=== PATIENT | female | born 1975 | race Asian ===

== ENCOUNTER 2021-03-07 20:04 | Emergency (ER) | payer MEDICAID ==
[~2021-03-07] VITALS: Ht 157.5 cm; Wt 70.0 kg
[~2021-03-07 20:04] MED LIST: ACET-2247 PO; ASPI-1450 PO; B CO1CAP6 PO; BISA-151 PO; CARV25 PO; CEFU250T87 PO; CLON-820 PO; ENAL20 PO; EPOE20002 SQ; ESCI-8 PO; FAMO20 PO; FERR-89 PO; FURO40 PO; HYDR-4723 PO; INSLAN SQ; INSU100V SQ; LORA-999 PO; PHOSLOC PO; SENN8.6T20 PO
[2021-03-07 20:48] LABS: BASOPHILS % (AUTO) 0.6 % (0.0-2.0); EOSINOPHILS % (AUTO) 0.9 % (1.0-6.0); HEMATOCRIT 37.5 % (36-46); HEMOGLOBIN 12.6 g/dL (12.0-16.0); LYMPHOCYTES # (AUTO) 2.3 K/uL (1.0-4.8); LYMPHOCYTES % (AUTO) 19.2 % (22.0-44.0); MEAN CORPUSCULAR HEMOGLOBIN 31.8 pg (26.0-34.0); MEAN CORPUSCULAR HGB CONC 33.7 G/dL (31.0-37.0); MEAN CORPUSCULAR VOLUME 95 fL (80-100); MONOCYTES # (AUTO) 1.1 K/uL (0.1-1.0); MONOCYTES % (AUTO) 9.3 % (2.0-9.0); NEUTROPHILS # (AUTO) 8.4 K/uL (1.8-7.7); PLATELET COUNT (AUTO) 338 K/uL (150-450); RED BLOOD CELL COUNT(AUTO) 3.97 MIL/uL (4.00-5.20); RED CELL DISTRIBUTION WIDTH 14.4 % (11.5-14.5)
[2021-03-07 20:53] LABS: CALCIUM, TOTAL 8.9 mg/dL (8.8-10.5); CREATININE 4.74 mg/dL (0.60-1.30); POTASSIUM 3.6 mmol/L (3.5-5.1)
[2021-03-07 20:59] LABS: ALBUMIN 3.9 g/dL (3.4-5.0); BILIRUBIN,TOTAL 0.5 mg/dL (0.1-1.0); TOTAL PROTEIN, SERUM 8.2 g/dL (6.4-8.2)
[2021-03-07 22:33] LABS: HCG,QUANTITATIVE < 1 mIU/mL (0-6)
[2021-03-07 22:51] LABS: B-TYPE NATRIURETIC PEPTIDE 297 pg/mL (0-100)
[2021-03-07 23:00] VITALS: BP 139/99
[2021-03-07] MEDS ORDERED: DiphenhydrAMINE HCL 25 MG CAPSULE PO ONE (23:00)
[2021-03-07] MEDS ORDERED: ACETAMINOPHEN 500 MG TABLET PO ONE (23:00)
[2021-03-07] MEDS ORDERED: METOCLOPRAMIDE HCL 10 MG TABLET PO ONE (23:00)
== END 2021-03-07 23:40 | disposition home or self-care (01) ==
LOC: EMS 20:05
DX: R51.9 Headache, unspecified (principal); R07.89 Other chest pain; I10 Essential (primary) hypertension; Z90.89 Acquired absence of other organs; Z79.82 Long term (current) use of aspirin; Z79.4 Long term (current) use of insulin; Z88.6 Allergy status to analgesic agent
CPT/HCPCS: 71045; 80053; 83880; 84484; 84702; 85025; 93005; 99285; 36415-L1; 36415-TC

== ENCOUNTER 2021-03-11 21:48 | Emergency (ER) | payer MEDICAID ==
[~2021-03-11] VITALS: Ht 157.5 cm; Wt 70.0 kg
[2021-03-11] MEDS ORDERED: HydrALAZINE HCL 20 MG/ML VIAL IVP ONE (22:45)
[2021-03-11 23:18] LABS: BASOPHILS % (AUTO) 1.1 % (0.0-2.0); EOSINOPHILS % (AUTO) 2.9 % (1.0-6.0); HEMATOCRIT 38.7 % (36-46); HEMOGLOBIN 13.5 g/dL (12.0-16.0); LYMPHOCYTES # (AUTO) 2.3 K/uL (1.0-4.8); LYMPHOCYTES % (AUTO) 22.2 % (22.0-44.0); MEAN CORPUSCULAR HGB CONC 34.8 G/dL (31.0-37.0); MEAN CORPUSCULAR VOLUME 95 fL (80-100); MONOCYTES # (AUTO) 1.5 K/uL (0.1-1.0); MONOCYTES % (AUTO) 14.9 % (2.0-9.0); NEUTROPHILS # (AUTO) 6.1 K/uL (1.8-7.7); NEUTROPHILS % (AUTO) 58.9 % (40.0-70.0); PLATELET COUNT (AUTO) 396 K/uL (150-450); RED BLOOD CELL COUNT(AUTO) 4.08 MIL/uL (4.00-5.20); RED CELL DISTRIBUTION WIDTH 14.3 % (11.5-14.5)
[2021-03-11 23:31] LABS: ANION GAP 12 mmol/L (8-16); CALCIUM, TOTAL 8.9 mg/dL (8.8-10.5); CARBON DIOXIDE 29 mmol/L (22-29); CHLORIDE 98 mmol/L (98-107); CREATININE 4.53 mg/dL (0.60-1.30); GLOMERULAR FILTR. RATE CALC 11 mL/min (>60); GLUCOSE,RANDOM 129 mg/dL (70-110); POTASSIUM 3.5 mmol/L (3.5-5.1); SODIUM SERUM 139 mmol/L (136-145); UREA NITROGEN, BLOOD 27 mg/dL (7-18)
[2021-03-11 23:44] LABS: ALANINE AMINOTRANSFERASE 23 U/L (12-78); ALBUMIN 3.8 g/dL (3.4-5.0); ALKALINE PHOSPHATASE 87 U/L (46-116); ASPARTATE AMINOTRANSFERASE 19 U/L (15-37); BILIRUBIN,TOTAL 0.4 mg/dL (0.1-1.0); HCG,QUANTITATIVE < 1 mIU/mL (0-6); LIPASE 184 U/L (73-393); TOTAL PROTEIN, SERUM 8.8 g/dL (6.4-8.2)
[2021-03-12] MEDS ORDERED: HydrALAZINE HCL 20 MG/ML VIAL IVP ONE (00:45)
[2021-03-12] MEDS ORDERED: MORPHINE SULFATE 2 MG/ML SYRINGE IVP ONE (01:00)
[2021-03-12] MEDS ORDERED: MORPHINE SULFATE 4 MG/ML SYRINGE IVP ONE (01:00)
[2021-03-12] MEDS ORDERED: CloNIDine HCL 0.1 MG TABLET PO ONE (01:30)
[2021-03-12 02:24] VITALS: BP 179/125
== END 2021-03-12 02:39 | disposition home or self-care (01) ==
LOC: EMS 21:48
DX: I12.0 Hypertensive chronic kidney disease with stage 5 chronic kidney disease or end stage renal disease (principal); N18.6 End stage renal disease; R10.13 Epigastric pain; Z99.2 Dependence on renal dialysis; Z79.82 Long term (current) use of aspirin; Z79.4 Long term (current) use of insulin; Z88.6 Allergy status to analgesic agent
CPT/HCPCS: 36415; 74176; 80053; 83690; 84702; 85025; 96374; 96375; 96376; 99285; J0360 ×2; J2270

== ENCOUNTER 2021-04-08 20:44 | Emergency (ER) | payer MEDICAID ==
[~2021-04-08] VITALS: Ht 165.1 cm; Wt 72.0 kg
[~2021-04-08 20:44] MED LIST changes: -CLON-820 PO; +CLON0.1T2 PO
[2021-04-08 22:39] LABS: BASOPHILS % (AUTO) 0.5 % (0.0-2.0); EOSINOPHILS % (AUTO) 6.1 % (1.0-6.0); HEMOGLOBIN 12.5 g/dL (12.0-16.0); LYMPHOCYTES # (AUTO) 1.3 K/uL (1.0-4.8); LYMPHOCYTES % (AUTO) 14.7 % (22.0-44.0); MEAN CORPUSCULAR HEMOGLOBIN 31.3 pg (26.0-34.0); MEAN CORPUSCULAR VOLUME 95 fL (80-100); NEUTROPHILS # (AUTO) 6.1 K/uL (1.8-7.7); NEUTROPHILS % (AUTO) 67.7 % (40.0-70.0); PLATELET COUNT (AUTO) 370 K/uL (150-450); RED BLOOD CELL COUNT(AUTO) 4.01 MIL/uL (4.00-5.20); RED CELL DISTRIBUTION WIDTH 14.4 % (11.5-14.5)
[2021-04-08 22:47] LABS: CALCIUM, TOTAL 8.5 mg/dL (8.8-10.5); CREATININE 4.74 mg/dL (0.60-1.30); POTASSIUM 3.8 mmol/L (3.5-5.1)
[2021-04-08 22:52] LABS: ALBUMIN 3.2 g/dL (3.4-5.0); BILIRUBIN,TOTAL 0.4 mg/dL (0.1-1.0); TOTAL PROTEIN, SERUM 7.9 g/dL (6.4-8.2)
[2021-04-09 01:15] VITALS: BP 115/70
== END 2021-04-09 01:38 | disposition home or self-care (01) ==
LOC: EMS 20:47
DX: N93.9 Abnormal uterine and vaginal bleeding, unspecified (principal); I12.0 Hypertensive chronic kidney disease with stage 5 chronic kidney disease or end stage renal disease; E11.22 Type 2 diabetes mellitus with diabetic chronic kidney disease; N18.6 End stage renal disease; Z99.2 Dependence on renal dialysis; Z88.6 Allergy status to analgesic agent; Z79.4 Long term (current) use of insulin; Z79.899 Other long term (current) drug therapy
CPT/HCPCS: 80053; 84702; 84703; 85025; 99283; 99284

== ENCOUNTER 2021-04-11 23:46 | Emergency (ER) | payer MEDICAID ==
[~2021-04-11] VITALS: Ht 160 cm; Wt 70.0 kg
[2021-04-12 00:30] LABS: BASOPHILS % (AUTO) 0.7 % (0.0-2.0); EOSINOPHILS % (AUTO) 7.7 % (1.0-6.0); HEMATOCRIT 37.1 % (36-46); HEMOGLOBIN 12.5 g/dL (12.0-16.0); LYMPHOCYTES # (AUTO) 1.7 K/uL (1.0-4.8); LYMPHOCYTES % (AUTO) 16.6 % (22.0-44.0); MEAN CORPUSCULAR HEMOGLOBIN 31.6 pg (26.0-34.0); MEAN CORPUSCULAR HGB CONC 33.5 G/dL (31.0-37.0); MEAN CORPUSCULAR VOLUME 94 fL (80-100); MONOCYTES # (AUTO) 1.2 K/uL (0.1-1.0); MONOCYTES % (AUTO) 11.5 % (2.0-9.0); NEUTROPHILS # (AUTO) 6.7 K/uL (1.8-7.7); NEUTROPHILS % (AUTO) 63.5 % (40.0-70.0); PLATELET COUNT (AUTO) 346 K/uL (150-450); RED BLOOD CELL COUNT(AUTO) 3.94 MIL/uL (4.00-5.20); RED CELL DISTRIBUTION WIDTH 13.7 % (11.5-14.5)
[2021-04-12 00:45] LABS: CALCIUM, TOTAL 8.2 mg/dL (8.8-10.5); CREATININE 4.4 mg/dL (0.60-1.30); POTASSIUM 3.6 mmol/L (3.5-5.1)
[2021-04-12 00:50] LABS: ALBUMIN 3.5 g/dL (3.4-5.0); BILIRUBIN,TOTAL 0.3 mg/dL (0.1-1.0); TOTAL PROTEIN, SERUM 7.7 g/dL (6.4-8.2)
[2021-04-12 00:54] LABS: INR 0.9 (0.9-1.1)
[2021-04-12 01:20] VITALS: BP 107/56
== END 2021-04-12 02:15 | disposition home or self-care (01) ==
LOC: EMS 23:47
DX: R07.9 Chest pain, unspecified (principal); E11.9 Type 2 diabetes mellitus without complications; I10 Essential (primary) hypertension; Z88.6 Allergy status to analgesic agent; Z79.899 Other long term (current) drug therapy; Z90.49 Acquired absence of other specified parts of digestive tract
CPT/HCPCS: 71045; 80053; 82550; 83880; 84484; 85025; 85610; 85730; 93005; 99284; 99285

== ENCOUNTER 2021-05-07 21:35 | Emergency (ER) | payer MEDICAID ==
[~2021-05-07] VITALS: Ht 157.5 cm; Wt 70.0 kg
[2021-05-07] MEDS ORDERED: ACETAMINOPHEN 500 MG TABLET PO ONE (22:30)
[2021-05-07 22:55] VITALS: BP 153/90
== END 2021-05-07 23:04 | disposition home or self-care (01) ==
LOC: EMS 21:37
DX: N64.4 Mastodynia (principal); E11.9 Type 2 diabetes mellitus without complications; I10 Essential (primary) hypertension; Z90.89 Acquired absence of other organs; Z79.82 Long term (current) use of aspirin; Z88.6 Allergy status to analgesic agent; Z79.4 Long term (current) use of insulin
CPT/HCPCS: 99282; Z7502; Z7610

== ENCOUNTER 2021-05-11 16:23 | Emergency (ER) | payer MEDICAID ==
[~2021-05-11] VITALS: Ht 157.5 cm; Wt 70.0 kg
[2021-05-11 17:12] LABS: GLUCOMETER DEV NAME(LOC) ERT.5; GLUCOSE,POINT OF CARE 122 MG/DL (70-110)
[2021-05-11 19:13] LABS: CALCIUM, TOTAL 8.1 mg/dL (8.8-10.5); CREATININE 6.24 mg/dL (0.60-1.30)
[2021-05-11 19:19] LABS: ALBUMIN 3.7 g/dL (3.4-5.0); BILIRUBIN,TOTAL 0.5 mg/dL (0.1-1.0); TOTAL PROTEIN, SERUM 8.5 g/dL (6.4-8.2)
[2021-05-11 20:27] LABS: BASOPHILS % (AUTO) 0.7 % (0.0-2.0); EOSINOPHILS % (AUTO) 3.3 % (1.0-6.0); HEMATOCRIT 37.6 % (36-46); HEMOGLOBIN 12.5 g/dL (12.0-16.0); LYMPHOCYTES # (AUTO) 3.1 K/uL (1.0-4.8); LYMPHOCYTES % (AUTO) 21.5 % (22.0-44.0); MEAN CORPUSCULAR HEMOGLOBIN 31.7 pg (26.0-34.0); MEAN CORPUSCULAR HGB CONC 33.2 G/dL (31.0-37.0); MEAN CORPUSCULAR VOLUME 96 fL (80-100); MONOCYTES # (AUTO) 1.3 K/uL (0.1-1.0); NEUTROPHILS # (AUTO) 9.3 K/uL (1.8-7.7); NEUTROPHILS % (AUTO) 65.5 % (40.0-70.0); PLATELET COUNT (AUTO) 348 K/uL (150-450); RED BLOOD CELL COUNT(AUTO) 3.94 MIL/uL (4.00-5.20); RED CELL DISTRIBUTION WIDTH 13.6 % (11.5-14.5)
[2021-05-11 20:30] VITALS: BP 165/102
[2021-05-11] MEDS ORDERED: AMOX TR/POT CLAV 875 MG/125 MG TABLET PO ONE (20:30)
[2021-05-11] MEDS ORDERED: HYDROCODONE/ACETAMINOPHEN 5-325 MG TABLET PO ONE (20:30)
== END 2021-05-11 21:11 | disposition home or self-care (01) ==
LOC: EMS 16:23
DX: N64.4 Mastodynia (principal); E11.9 Type 2 diabetes mellitus without complications; I10 Essential (primary) hypertension; Z88.6 Allergy status to analgesic agent; Z79.84 Long term (current) use of oral hypoglycemic drugs; Z79.82 Long term (current) use of aspirin; Z79.899 Other long term (current) drug therapy
CPT/HCPCS: 80053; 82948; 82962; 85025; 99283

== ENCOUNTER 2021-06-14 13:18 | Emergency (ER) | payer MEDICAID ==
[~2021-06-14] VITALS: Ht 157.5 cm; Wt 72.7 kg
[2021-06-14] MEDS ORDERED: ONDANSETRON HCL 4 MG/2 ML VIAL IVP ONE (14:15)
[2021-06-14] MEDS ORDERED: ACETAMINOPHEN 1000 MG/ISO-OSM 100 ML IV ONE (14:15)
[2021-06-14 14:31] LABS: BASOPHILS % (AUTO) 0.2 % (0.0-2.0); EOSINOPHILS % (AUTO) 0 % (1.0-6.0); HEMATOCRIT 39.2 % (36-46); HEMOGLOBIN 13.1 g/dL (12.0-16.0); LYMPHOCYTES # (AUTO) 1.8 K/uL (1.0-4.8); LYMPHOCYTES % (AUTO) 9.2 % (22.0-44.0); MEAN CORPUSCULAR HEMOGLOBIN 31.6 pg (26.0-34.0); MEAN CORPUSCULAR HGB CONC 33.4 G/dL (31.0-37.0); MEAN CORPUSCULAR VOLUME 95 fL (80-100); MONOCYTES # (AUTO) 0.4 K/uL (0.1-1.0); NEUTROPHILS # (AUTO) 17.3 K/uL (1.8-7.7); NEUTROPHILS % (AUTO) 88.6 % (40.0-70.0); PLATELET COUNT (AUTO) 521 K/uL (150-450); RED BLOOD CELL COUNT(AUTO) 4.14 MIL/uL (4.00-5.20); RED CELL DISTRIBUTION WIDTH 14.5 % (11.5-14.5)
[2021-06-14 14:41] LABS: CALCIUM, TOTAL 8.2 mg/dL (8.8-10.5); CREATININE 7.31 mg/dL (0.60-1.30)
[2021-06-14 14:49] VITALS: BP 162/99
[2021-06-14] MEDS ORDERED: LORazepam 2 MG/ML VIAL IVP ONE (15:00)
[2021-06-14] MEDS ORDERED: METOCLOPRAMIDE HCL 5 MG/ML 2 ML VIAL IVP ONE (15:00)
[2021-06-14] MEDS ORDERED: BUPIVACAINE HCL/PF 0.25% 10 ML VIAL SQ ONE (15:00)
== END 2021-06-14 16:15 | disposition home or self-care (01) ==
LOC: EMS 13:22
DX: D72.829 Elevated white blood cell count, unspecified (principal); R11.2 Nausea with vomiting, unspecified; K08.89 Other specified disorders of teeth and supporting structures; F41.9 Anxiety disorder, unspecified; E11.9 Type 2 diabetes mellitus without complications; I10 Essential (primary) hypertension; Z90.49 Acquired absence of other specified parts of digestive tract; Z88.6 Allergy status to analgesic agent; Z79.899 Other long term (current) drug therapy
CPT/HCPCS: 36415; 64400; 80048; 85025; 96365; 96366; 96375; 99284; J0131; J2060; J2405; J2765; J3490

== ENCOUNTER 2021-06-14 17:21 | Emergency (ER) | payer MEDICAID ==
[~2021-06-14] VITALS: Ht 165.1 cm; Wt 77.3 kg
[2021-06-14 17:37] VITALS: BP 127/79
== END 2021-06-14 17:48 | disposition home or self-care (01) ==
LOC: EMS 17:25
DX: R11.2 Nausea with vomiting, unspecified (principal); K08.89 Other specified disorders of teeth and supporting structures; E11.9 Type 2 diabetes mellitus without complications; I10 Essential (primary) hypertension; Z88.6 Allergy status to analgesic agent; Z79.82 Long term (current) use of aspirin; Z79.899 Other long term (current) drug therapy
CPT/HCPCS: 99283; Z7502

== ENCOUNTER 2021-06-14 21:44 | Inpatient (IN) | payer MEDICAID ==
[~2021-06-14] VITALS: Ht 157.5 cm; Wt 77.1 kg
[2021-06-14] MEDS ORDERED: ONDANSETRON HCL 4 MG/2 ML VIAL IVP ONE (22:15)
[2021-06-14] MEDS ORDERED: ACETAMINOPHEN 500 MG TABLET PO ONE (22:15)
[2021-06-14 23:01] LABS: BASOPHILS % (AUTO) 0.5 % (0.0-2.0); EOSINOPHILS % (AUTO) 0.2 % (1.0-6.0); HEMATOCRIT 37.4 % (36-46); HEMOGLOBIN 12.7 g/dL (12.0-16.0); LYMPHOCYTES # (AUTO) 2.7 K/uL (1.0-4.8); LYMPHOCYTES % (AUTO) 13.4 % (22.0-44.0); MEAN CORPUSCULAR HEMOGLOBIN 31.9 pg (26.0-34.0); MEAN CORPUSCULAR HGB CONC 33.8 G/dL (31.0-37.0); MEAN CORPUSCULAR VOLUME 94 fL (80-100); MONOCYTES % (AUTO) 4.8 % (2.0-9.0); NEUTROPHILS # (AUTO) 16.4 K/uL (1.8-7.7); NEUTROPHILS % (AUTO) 81.1 % (40.0-70.0); PLATELET COUNT (AUTO) 538 K/uL (150-450); RED BLOOD CELL COUNT(AUTO) 3.96 MIL/uL (4.00-5.20); RED CELL DISTRIBUTION WIDTH 14.7 % (11.5-14.5)
[2021-06-14 23:54] LABS: BILIRUBIN,TOTAL 0.5 mg/dL (0.1-1.0); CALCIUM, TOTAL 7.9 mg/dL (8.8-10.5); CREATININE 7.24 mg/dL (0.60-1.30); MAGNESIUM 1.9 mg/dL (1.80-2.40); PHOSPHORUS 6.2 mg/dL (2.5-4.9); TOTAL PROTEIN, SERUM 8.8 g/dL (6.4-8.2)
[2021-06-15 00:06] LABS: POTASSIUM 2.9 mmol/L (3.5-5.1)
[2021-06-15] MEDS ORDERED: POTASSIUM CHL 10 MEQ/WATER 50 ML IV ONE (00:30)
[2021-06-15] MEDS ORDERED: AMOX TR/POT CLAV 875 MG/125 MG TABLET PO ONE (00:30)
[2021-06-15] MEDS ORDERED: 0.9% SODIUM CHLORIDE 10 ML SYRINGE IVP PRN (00:45)
[2021-06-15] MEDS ORDERED: ONDANSETRON HCL 4 MG/2 ML VIAL IVP PRN (00:45)
[2021-06-15] MEDS ORDERED: ACETAMINOPHEN 325 MG TABLET PO PRN (00:45)
[2021-06-15 00:54] LABS: COVID AG,FIA SOURCE NASOPHARYNGEAL
[2021-06-15 03:35] VITALS: BP 185/106
[2021-06-15 05:42] VITALS: BP 177/99
[2021-06-15 07:35] VITALS: BP 184/113
[2021-06-15] MEDS ORDERED: DEXTROSE 50%-WATER 25 GM/50 ML SYRINGE IVP PRN (08:00)
[2021-06-15] MEDS ORDERED: HYDROCODONE/ACETAMINOPHEN 5-325 MG TABLET PO PRN (08:30)
[2021-06-15] MEDS: DOCUSATE SODIUM 100 MG CAPSULE PO SCH ×2 (09:00→21:49)
[2021-06-15] MEDS: ASPIRIN 81 MG CHEWABLE TABLET PO SCH (09:24)
[2021-06-15] MEDS: AmLODIPine BESYLATE 10 MG TABLET PO SCH (09:24)
[2021-06-15] MEDS: HYDROCODONE/ACETAMINOPHEN 5-325 MG TABLET PO PRN (09:25)
[2021-06-15] MEDS: HEPARIN SODIUM,PORCINE 5,000 UNITS/ML VIAL SQ SCH ×2 (09:29→21:49)
[2021-06-15] MEDS: FAMOTIDINE 20 MG TABLET PO SCH (09:30)
[2021-06-15 11:10] VITALS: BP 166/101
[2021-06-15] MEDS: CARVEDILOL 12.5 MG TABLET PO SCH ×2 (11:18→21:49)
[2021-06-15] MEDS: VITAMIN B COMP/VIT C/FOLIC ACID CAPSULE PO SCH (14:25)
[2021-06-15 15:08] VITALS: BP 154/83
[2021-06-15] MEDS ORDERED: SODIUM CHLORIDE 0.9% 2,000 ML ONE (15:16)
[2021-06-15 18:20] LABS: GLUCOMETER DEV NAME(LOC) 5S.1; GLUCOSE,POINT OF CARE 134 MG/DL (70-110)
[2021-06-15 20:44] VITALS: BP 189/111
[2021-06-15] MEDS ORDERED: LABETALOL HCL 5 MG/ML 20 ML VIAL IVP ONE (21:30)
[2021-06-15] MEDS: DiphenhydrAMINE/ZINC ACET 30 GM CREAM TP PRN (21:48)
[2021-06-16] VITALS (9 sets, daily range): BP systolic 104–196; BP diastolic 63–114
[2021-06-16] MEDS ORDERED: AmLODIPine BESYLATE 10 MG TABLET PO ONE (00:30)
[2021-06-16] MEDS ORDERED: HydrALAZINE HCL 20 MG/ML VIAL IVP ONE (00:30)
[2021-06-16 02:39] LABS: GLUCOMETER DEV NAME(LOC) 5S.2B; GLUCOSE,POINT OF CARE 116 MG/DL (70-110)
[2021-06-16 02:39] LABS: GLUCOMETER DEV NAME(LOC) 5S.2B; GLUCOSE,POINT OF CARE 120 MG/DL (70-110)
[2021-06-16] MEDS: DiphenhydrAMINE/ZINC ACET 30 GM CREAM TP PRN (03:20)
[2021-06-16 07:10] LABS: BASOPHILS % (AUTO) 0.9 % (0.0-2.0); EOSINOPHILS % (AUTO) 2.2 % (1.0-6.0); HEMATOCRIT 39.2 % (36-46); HEMOGLOBIN 13.3 g/dL (12.0-16.0); LYMPHOCYTES # (AUTO) 3.1 K/uL (1.0-4.8); LYMPHOCYTES % (AUTO) 23.3 % (22.0-44.0); MEAN CORPUSCULAR HEMOGLOBIN 32.4 pg (26.0-34.0); MEAN CORPUSCULAR HGB CONC 33.9 G/dL (31.0-37.0); MEAN CORPUSCULAR VOLUME 96 fL (80-100); MONOCYTES # (AUTO) 1.1 K/uL (0.1-1.0); MONOCYTES % (AUTO) 8.2 % (2.0-9.0); NEUTROPHILS # (AUTO) 8.8 K/uL (1.8-7.7); NEUTROPHILS % (AUTO) 65.4 % (40.0-70.0); PLATELET COUNT (AUTO) 484 K/uL (150-450); RED CELL DISTRIBUTION WIDTH 14.7 % (11.5-14.5)
[2021-06-16 07:56] LABS: ALBUMIN 3.8 g/dL (3.4-5.0); BILIRUBIN,TOTAL 0.5 mg/dL (0.1-1.0); CALCIUM, TOTAL 8.8 mg/dL (8.8-10.5); CREATININE 4.65 mg/dL (0.60-1.30); POTASSIUM 3.2 mmol/L (3.5-5.1); TOTAL PROTEIN, SERUM 8.3 g/dL (6.4-8.2)
[2021-06-16 07:58] LABS: MAGNESIUM 2.1 mg/dL (1.80-2.40); PHOSPHORUS 3.5 mg/dL (2.5-4.9)
[2021-06-16] MEDS: FAMOTIDINE 20 MG TABLET PO SCH (08:46)
[2021-06-16] MEDS: VITAMIN B COMP/VIT C/FOLIC ACID CAPSULE PO SCH (08:46)
[2021-06-16] MEDS: AmLODIPine BESYLATE 10 MG TABLET PO SCH (08:47)
[2021-06-16] MEDS: ASPIRIN 81 MG CHEWABLE TABLET PO SCH (08:47)
[2021-06-16] MEDS: DOCUSATE SODIUM 100 MG CAPSULE PO SCH ×2 (08:47→19:47)
[2021-06-16] MEDS: HEPARIN SODIUM,PORCINE 5,000 UNITS/ML VIAL SQ SCH ×2 (08:48→19:50)
[2021-06-16] MEDS: CARVEDILOL 25 MG TABLET PO SCH ×2 (10:37→20:04)
[2021-06-16] MEDS: ENALAPRIL MALEATE 20 MG TABLET PO SCH (10:37)
[2021-06-16] MEDS: ONDANSETRON HCL 4 MG/2 ML VIAL IVP PRN (19:44)
[2021-06-16] MEDS: INSULIN LISPRO 100 UNITS/ML SQ PRN (20:03)
[2021-06-16 20:54] LABS: GLUCOMETER DEV NAME(LOC) 5S.1; GLUCOSE,POINT OF CARE 190 MG/DL (70-110)
[2021-06-17 04:05] VITALS: BP 129/69
[2021-06-17 07:05] LABS: GLUCOMETER DEV NAME(LOC) 5S.2B; GLUCOSE,POINT OF CARE 208 MG/DL (70-110)
[2021-06-17 07:05] LABS: GLUCOMETER DEV NAME(LOC) 5S.2B; GLUCOSE,POINT OF CARE 127 MG/DL (70-110)
[2021-06-17 07:05] LABS: GLUCOMETER DEV NAME(LOC) 5S.2B; GLUCOSE,POINT OF CARE 142 MG/DL (70-110)
[2021-06-17 07:20] LABS: BASOPHILS % (AUTO) 0.4 % (0.0-2.0); EOSINOPHILS % (AUTO) 3.2 % (1.0-6.0); HEMOGLOBIN 11.6 g/dL (12.0-16.0); LYMPHOCYTES % (AUTO) 35.1 % (22.0-44.0); MEAN CORPUSCULAR HEMOGLOBIN 32.2 pg (26.0-34.0); MEAN CORPUSCULAR HGB CONC 33.1 G/dL (31.0-37.0); MEAN CORPUSCULAR VOLUME 97 fL (80-100); MONOCYTES # (AUTO) 1.2 K/uL (0.1-1.0); MONOCYTES % (AUTO) 8.4 % (2.0-9.0); NEUTROPHILS # (AUTO) 7.5 K/uL (1.8-7.7); NEUTROPHILS % (AUTO) 52.9 % (40.0-70.0); PLATELET COUNT (AUTO) 409 K/uL (150-450); RED CELL DISTRIBUTION WIDTH 14.6 % (11.5-14.5)
[2021-06-17 07:29] LABS: CREATININE 5.69 mg/dL (0.60-1.30)
[2021-06-17 08:01] VITALS: BP 151/81
[2021-06-17] MEDS: AmLODIPine BESYLATE 10 MG TABLET PO SCH (09:00)
[2021-06-17] MEDS: ENALAPRIL MALEATE 20 MG TABLET PO SCH (09:00)
[2021-06-17] MEDS: CARVEDILOL 25 MG TABLET PO SCH ×2 (09:00→21:00)
[2021-06-17] MEDS ORDERED: POTASSIUM CHLORIDE 20 MEQ ER TABLET PO ONE (11:15)
[2021-06-17] MEDS: HEPARIN SODIUM,PORCINE 5,000 UNITS/ML VIAL SQ SCH ×2 (11:18→20:35)
[2021-06-17] MEDS: VITAMIN B COMP/VIT C/FOLIC ACID CAPSULE PO SCH (11:18)
[2021-06-17] MEDS: ASPIRIN 81 MG CHEWABLE TABLET PO SCH (11:18)
[2021-06-17] MEDS: DOCUSATE SODIUM 100 MG CAPSULE PO SCH ×2 (11:19→20:35)
[2021-06-17] MEDS: FAMOTIDINE 20 MG TABLET PO SCH (11:19)
[2021-06-17] MEDS: INSULIN LISPRO 100 UNITS/ML SQ PRN (11:23)
[2021-06-17] MEDS: DiphenhydrAMINE/ZINC ACET 30 GM CREAM TP PRN (11:23)
[2021-06-17] MEDS ORDERED: MECLIZINE HCL 25 MG TABLET PO PRN (11:30)
[2021-06-17] MEDS ORDERED: DiphenhydrAMINE HCL 25 MG CAPSULE PO ONE (11:30)
[2021-06-17 11:57] VITALS: BP 132/78
[2021-06-17 13:19] LABS: GLUCOMETER DEV NAME(LOC) 5S.2B; GLUCOSE,POINT OF CARE 161 MG/DL (70-110)
[2021-06-17 13:19] LABS: GLUCOMETER DEV NAME(LOC) 5S.1; GLUCOSE,POINT OF CARE 111 MG/DL (70-110)
[2021-06-17 15:46] VITALS: BP 132/71
[2021-06-17 16:29] LABS: APPEARANCE,URINE CLOUDY (CLEAR); BILIRUBIN,URINE NEGATIVE (NEGATIVE); GLUCOSE, URINE (UA) 100 mg/dL (NEGATIVE); KETONES,URINE TRACE mg/dL (NEGATIVE); LEUKOCYTE ESTERASE ,URINE SMALL (NEGATIVE); NITRATE,URINE NEGATIVE (NEGATIVE); OCCULT BLOOD,URINE LARGE (NEGATIVE); PH,URINE 5.5 (5.0-8.0); PROTEIN,URINE SEE CONFIRM (NEGATIVE); UROBILINOGEN,URINE 0.2 mg/dL (<=1.0)
[2021-06-17] MEDS ORDERED: SODIUM CHLORIDE 0.9% 2,000 ML ONE (16:30)
[2021-06-17 16:38] LABS: AMPHET/METH SCREEN,URINE NEGATIVE (NEGATIVE); BACTERIA,URINE Few /HPF (None Seen); BARBITURATE SCREEN, URINE NEGATIVE (NEGATIVE); BENZODIAZEPINES SCREEN,URINE NEGATIVE (NEGATIVE); CANNABINOID SCREEN,URINE NEGATIVE (NEGATIVE); COCAINE SCREEN,URINE NEGATIVE (NEGATIVE); METHADONE SCREEN, URINE NEGATIVE (NEGATIVE); OPIATE SCREEN,URINE NEGATIVE (NEGATIVE); PHENCYCLIDINE SCREEN,URINE NEGATIVE (NEGATIVE); RBC,URINE 51-100 /HPF (0-2); SQUAMOUS EPITHELIAL CELL,UR Few /LPF (None Seen); SULFOSALICYLIC ACID,URINE 3+ (Negative)
[2021-06-17 20:02] LABS: GLUCOMETER DEV NAME(LOC) 5S.1; GLUCOSE,POINT OF CARE 116 MG/DL (70-110)
[2021-06-17 20:20] VITALS: BP 148/101
[2021-06-17] MEDS: HYDROCODONE/ACETAMINOPHEN 5-325 MG TABLET PO PRN (20:35)
[2021-06-18] MEDS: DiphenhydrAMINE/ZINC ACET 30 GM CREAM TP PRN (01:21)
[2021-06-18 01:33] LABS: GLUCOMETER DEV NAME(LOC) 5N.3; GLUCOSE,POINT OF CARE 136 MG/DL (70-110)
[2021-06-18 04:25] VITALS: BP 127/84
[2021-06-18 07:06] LABS: BASOPHILS % (AUTO) 0.5 % (0.0-2.0); EOSINOPHILS % (AUTO) 4.7 % (1.0-6.0); HEMATOCRIT 36.8 % (36-46); HEMOGLOBIN 12.4 g/dL (12.0-16.0); LYMPHOCYTES # (AUTO) 3.3 K/uL (1.0-4.8); LYMPHOCYTES % (AUTO) 24.5 % (22.0-44.0); MEAN CORPUSCULAR HEMOGLOBIN 32.3 pg (26.0-34.0); MEAN CORPUSCULAR HGB CONC 33.6 G/dL (31.0-37.0); MEAN CORPUSCULAR VOLUME 96 fL (80-100); MONOCYTES % (AUTO) 7.5 % (2.0-9.0); NEUTROPHILS # (AUTO) 8.4 K/uL (1.8-7.7); NEUTROPHILS % (AUTO) 62.8 % (40.0-70.0); PLATELET COUNT (AUTO) 434 K/uL (150-450); RED BLOOD CELL COUNT(AUTO) 3.83 MIL/uL (4.00-5.20); RED CELL DISTRIBUTION WIDTH 14.7 % (11.5-14.5)
[2021-06-18 07:20] LABS: CALCIUM, TOTAL 8.9 mg/dL (8.8-10.5); CREATININE 3.86 mg/dL (0.60-1.30); POTASSIUM 3.1 mmol/L (3.5-5.1)
[2021-06-18] MEDS: VITAMIN B COMP/VIT C/FOLIC ACID CAPSULE PO SCH (07:59)
[2021-06-18] MEDS: CARVEDILOL 25 MG TABLET PO SCH ×2 (07:59→20:38)
[2021-06-18] MEDS: AmLODIPine BESYLATE 10 MG TABLET PO SCH (07:59)
[2021-06-18] MEDS: FAMOTIDINE 20 MG TABLET PO SCH (07:59)
[2021-06-18] MEDS: DOCUSATE SODIUM 100 MG CAPSULE PO SCH ×2 (07:59→20:38)
[2021-06-18] MEDS: ASPIRIN 81 MG CHEWABLE TABLET PO SCH (07:59)
[2021-06-18] MEDS: HEPARIN SODIUM,PORCINE 5,000 UNITS/ML VIAL SQ SCH ×2 (08:00→20:39)
[2021-06-18 08:18] VITALS: BP 129/74
[2021-06-18] MEDS: ACETAMINOPHEN 325 MG TABLET PO PRN ×2 (11:45→20:41)
[2021-06-18] MEDS: ENALAPRIL MALEATE 20 MG TABLET PO SCH (11:46)
[2021-06-18 12:12] LABS: GLUCOMETER DEV NAME(LOC) 5N.3; GLUCOSE,POINT OF CARE 129 MG/DL (70-110)
[2021-06-18 12:12] LABS: GLUCOMETER DEV NAME(LOC) 5N.3; GLUCOSE,POINT OF CARE 100 MG/DL (70-110)
[2021-06-18] MEDS ORDERED: POTASSIUM CHLORIDE 20 MEQ ER TABLET PO ONE (12:30)
[2021-06-18] MEDS ORDERED: MECL-160 PO (12:36)
[2021-06-18] MEDS ORDERED: CEPH500C2 PO (12:36)
[2021-06-18] MEDS ORDERED: AMLO-258 PO (12:36)
[2021-06-18] MEDS ORDERED: ASPI81 PO (12:36)
[2021-06-18 12:48] VITALS: BP 144/89
[2021-06-18] MEDS: CEPHALEXIN MONOHYDRATE 500 MG CAPSULE PO SCH ×2 (15:49→23:18)
[2021-06-18 15:52] VITALS: BP 130/76
[2021-06-18 19:35] VITALS: BP_SYST 160; BP_SYST 95; BP_DIAS 52; BP_DIAS 83
[2021-06-18] MEDS: ONDANSETRON HCL 4 MG/2 ML VIAL IVP PRN (21:36)
[2021-06-19 00:36] VITALS: BP 110/74
[2021-06-19 01:17] LABS: GLUCOMETER DEV NAME(LOC) 5S.2B; GLUCOSE,POINT OF CARE 135 MG/DL (70-110)
[2021-06-19 01:17] LABS: GLUCOMETER DEV NAME(LOC) 5S.2B; GLUCOSE,POINT OF CARE 139 MG/DL (70-110)
[2021-06-19 04:48] VITALS: BP 97/57
[2021-06-19 06:30] LABS: BASOPHILS % (AUTO) 0.4 % (0.0-2.0); EOSINOPHILS % (AUTO) 3.7 % (1.0-6.0); HEMOGLOBIN 11.8 g/dL (12.0-16.0); LYMPHOCYTES # (AUTO) 4.4 K/uL (1.0-4.8); LYMPHOCYTES % (AUTO) 29.3 % (22.0-44.0); MEAN CORPUSCULAR HEMOGLOBIN 32.6 pg (26.0-34.0); MEAN CORPUSCULAR HGB CONC 33.7 G/dL (31.0-37.0); MEAN CORPUSCULAR VOLUME 97 fL (80-100); MONOCYTES # (AUTO) 1.2 K/uL (0.1-1.0); MONOCYTES % (AUTO) 8.3 % (2.0-9.0); NEUTROPHILS # (AUTO) 8.7 K/uL (1.8-7.7); NEUTROPHILS % (AUTO) 58.3 % (40.0-70.0); PLATELET COUNT (AUTO) 443 K/uL (150-450); RED BLOOD CELL COUNT(AUTO) 3.62 MIL/uL (4.00-5.20); RED CELL DISTRIBUTION WIDTH 15.1 % (11.5-14.5)
[2021-06-19 06:34] LABS: CALCIUM, TOTAL 8.1 mg/dL (8.8-10.5); CREATININE 6.63 mg/dL (0.60-1.30); MAGNESIUM 2.5 mg/dL (1.80-2.40); PHOSPHORUS 7.8 mg/dL (2.5-4.9); POTASSIUM 3.8 mmol/L (3.5-5.1)
[2021-06-19 07:08] LABS: GLUCOMETER DEV NAME(LOC) 5S.1; GLUCOSE,POINT OF CARE 108 MG/DL (70-110)
[2021-06-19 08:25] VITALS: BP 110/68
[2021-06-19] MEDS: HEPARIN SODIUM,PORCINE 5,000 UNITS/ML VIAL SQ SCH (09:00)
[2021-06-19] MEDS: CARVEDILOL 25 MG TABLET PO SCH (09:40)
[2021-06-19] MEDS: VITAMIN B COMP/VIT C/FOLIC ACID CAPSULE PO SCH (09:40)
[2021-06-19] MEDS: CEPHALEXIN MONOHYDRATE 500 MG CAPSULE PO SCH (09:40)
[2021-06-19] MEDS: AmLODIPine BESYLATE 10 MG TABLET PO SCH (09:40)
[2021-06-19] MEDS: ASPIRIN 81 MG CHEWABLE TABLET PO SCH (09:40)
[2021-06-19] MEDS: DOCUSATE SODIUM 100 MG CAPSULE PO SCH (09:40)
[2021-06-19] MEDS: ENALAPRIL MALEATE 20 MG TABLET PO SCH (09:41)
[2021-06-19] MEDS: FAMOTIDINE 20 MG TABLET PO SCH (09:41)
[2021-06-19 11:39] VITALS: BP 99/67
[2021-06-19] MEDS ORDERED: CARV12 PO (11:56)
[2021-06-19 23:16] LABS: GLUCOMETER DEV NAME(LOC) 5S.1; GLUCOSE,POINT OF CARE 127 MG/DL (70-110)
[2021-06-20] MEDS ORDERED: ENALAPRIL MALEATE 10 MG TABLET PO SCH (09:00)
== END 2021-06-19 13:29 | disposition home or self-care (01) | DRG 425 ==
LOC: EMS 21:48 → 5S 06-15 02:58
PROVIDERS: ADMIT Internal Medicine; ATTEND Internal Medicine
PROC: 5A1D70Z Performance of Urinary Filtration, Intermittent, Less than 6 Hours Per Day (ICD-10-PCS; principal; 2021-06-15)
PROC: 5A1D70Z Performance of Urinary Filtration, Intermittent, Less than 6 Hours Per Day (ICD-10-PCS; 2021-06-17)
DX: E87.6 Hypokalemia (principal); I12.0 Hypertensive chronic kidney disease with stage 5 chronic kidney disease or end stage renal disease; N18.6 End stage renal disease; I42.9 Cardiomyopathy, unspecified; R65.10 Systemic inflammatory response syndrome (SIRS) of non-infectious origin without acute organ dysfunction; D63.1 Anemia in chronic kidney disease; N39.0 Urinary tract infection, site not specified; E11.22 Type 2 diabetes mellitus with diabetic chronic kidney disease; Z20.822 Contact with and (suspected) exposure to COVID-19; E66.9 Obesity, unspecified; Z68.30 Body mass index [BMI] 30.0-30.9, adult; Z79.4 Long term (current) use of insulin; Z79.899 Other long term (current) drug therapy; Z99.2 Dependence on renal dialysis
CPT/HCPCS: 70450; 71045; 80048; 80053; 80307; 81001; 81002; 82550; 82962; 83690; 83735; 84100; 84132; 84484; 85025; 87040; 87086; 87340; 93005; 97110; 97162; 97530; 99285; J0360; J1644; J2405; J3480; J3490; J7030; 36415-L1; 36415-TC

== ENCOUNTER 2021-06-19 17:38 | Emergency (ER) | payer MEDICAID ==
[~2021-06-19] VITALS: Ht 157.5 cm; Wt 70.0 kg
[~2021-06-19 17:38] MED LIST changes: +AMLO-258 PO; +ASPI81 PO; +CARV12 PO; -CEFU250T87 PO; +CEPH500C2 PO; -CLON0.1T2 PO; +MECL-160 PO
[2021-06-19 20:14] LABS: BASOPHILS % (AUTO) 0.7 % (0.0-2.0); EOSINOPHILS % (AUTO) 2.1 % (1.0-6.0); HEMATOCRIT 38.3 % (36-46); HEMOGLOBIN 12.9 g/dL (12.0-16.0); LYMPHOCYTES # (AUTO) 1.9 K/uL (1.0-4.8); LYMPHOCYTES % (AUTO) 13.9 % (22.0-44.0); MEAN CORPUSCULAR HEMOGLOBIN 32.8 pg (26.0-34.0); MEAN CORPUSCULAR HGB CONC 33.6 G/dL (31.0-37.0); MEAN CORPUSCULAR VOLUME 97 fL (80-100); MONOCYTES # (AUTO) 0.8 K/uL (0.1-1.0); MONOCYTES % (AUTO) 5.4 % (2.0-9.0); NEUTROPHILS # (AUTO) 10.9 K/uL (1.8-7.7); NEUTROPHILS % (AUTO) 77.9 % (40.0-70.0); PLATELET COUNT (AUTO) 566 K/uL (150-450); RED BLOOD CELL COUNT(AUTO) 3.94 MIL/uL (4.00-5.20); RED CELL DISTRIBUTION WIDTH 14.8 % (11.5-14.5)
[2021-06-19 20:27] LABS: CALCIUM, TOTAL 8.7 mg/dL (8.8-10.5); CREATININE 8.05 mg/dL (0.60-1.30)
[2021-06-19 20:33] LABS: ALBUMIN 4.2 g/dL (3.4-5.0); BILIRUBIN,TOTAL 0.3 mg/dL (0.1-1.0)
[2021-06-19] MEDS ORDERED: ACETAMINOPHEN 500 MG TABLET PO ONE (23:30)
[2021-06-19] MEDS ORDERED: ONDANSETRON HCL 4 MG TABLET PO ONE (23:30)
[2021-06-19] MEDS ORDERED: MECLIZINE HCL 25 MG TABLET PO ONE (23:30)
[2021-06-20 00:43] VITALS: BP 112/68
== END 2021-06-20 03:53 | disposition home or self-care (01) ==
LOC: EMS 17:38
DX: I12.0 Hypertensive chronic kidney disease with stage 5 chronic kidney disease or end stage renal disease (principal); E11.22 Type 2 diabetes mellitus with diabetic chronic kidney disease; N18.6 End stage renal disease; E11.65 Type 2 diabetes mellitus with hyperglycemia; Z99.2 Dependence on renal dialysis; Z79.899 Other long term (current) drug therapy; Z79.82 Long term (current) use of aspirin; Z88.6 Allergy status to analgesic agent; Z79.4 Long term (current) use of insulin
CPT/HCPCS: 36415; 80053; 82962; 83690; 84484; 85025; 99283; Q0162

== ENCOUNTER 2021-06-20 16:05 | Inpatient (IN) | payer MEDICAID ==
[~2021-06-20] VITALS: Ht 157.5 cm; Wt 76.0 kg
[~2021-06-20 16:05] MED LIST changes: -CARV25 PO; -ENAL20 PO
[2021-06-20 17:50] LABS: BASOPHILS % (AUTO) 0.6 % (0.0-2.0); EOSINOPHILS % (AUTO) 1.4 % (1.0-6.0); HEMATOCRIT 36.9 % (36-46); HEMOGLOBIN 12.4 g/dL (12.0-16.0); LYMPHOCYTES % (AUTO) 12.8 % (22.0-44.0); MEAN CORPUSCULAR HEMOGLOBIN 32.3 pg (26.0-34.0); MEAN CORPUSCULAR HGB CONC 33.6 G/dL (31.0-37.0); MEAN CORPUSCULAR VOLUME 96 fL (80-100); MONOCYTES # (AUTO) 0.9 K/uL (0.1-1.0); NEUTROPHILS # (AUTO) 12.4 K/uL (1.8-7.7); NEUTROPHILS % (AUTO) 79.2 % (40.0-70.0); PLATELET COUNT (AUTO) 545 K/uL (150-450); RED BLOOD CELL COUNT(AUTO) 3.84 MIL/uL (4.00-5.20); RED CELL DISTRIBUTION WIDTH 14.5 % (11.5-14.5)
[2021-06-20 18:18] LABS: CALCIUM, TOTAL 8.4 mg/dL (8.8-10.5); CREATININE 5.52 mg/dL (0.60-1.30); POTASSIUM 3.5 mmol/L (3.5-5.1)
[2021-06-20 18:23] LABS: ALBUMIN 3.8 g/dL (3.4-5.0); BILIRUBIN,TOTAL 0.5 mg/dL (0.1-1.0); TOTAL PROTEIN, SERUM 8.4 g/dL (6.4-8.2)
[2021-06-20] MEDS ORDERED: ONDANSETRON HCL 4 MG/2 ML VIAL IVP PRN (19:00)
[2021-06-20] MEDS ORDERED: NITROGLYCERIN 2% (1 GM=INCH) PACKET TP ONE (19:00)
[2021-06-20] MEDS ORDERED: ACETAMINOPHEN 325 MG TABLET PO PRN (19:00)
[2021-06-20] MEDS ORDERED: 0.9% SODIUM CHLORIDE 10 ML SYRINGE IVP PRN (19:00)
[2021-06-20] MEDS ORDERED: MORPHINE SULFATE 2 MG/ML SYRINGE IVP ONE (19:00)
[2021-06-20] MEDS ORDERED: ONDANSETRON HCL 4 MG/2 ML VIAL IVP ONE (19:00)
[2021-06-20] MEDS ORDERED: SODIUM CHLORIDE 0.9% 100 ML ONE (20:02)
[2021-06-20] MEDS ORDERED: IOHEXOL 350 MG/ML 100 ML VIAL ONE (20:02)
[2021-06-20 21:28] LABS: COVID AG,FIA SOURCE NASAL SWAB
[2021-06-20] MEDS ORDERED: BISACODYL 5 MG EC TABLET PO PRN (22:45)
[2021-06-20] MEDS ORDERED: DEXTROSE 50%-WATER 25 GM/50 ML SYRINGE IVP PRN (22:45)
[2021-06-21] VITALS (7 sets, daily range): BP systolic 98–160; BP diastolic 57–92
[2021-06-21] MEDS: DiphenhydrAMINE/ZINC ACET 30 GM CREAM TP PRN (00:40)
[2021-06-21] MEDS: CEPHALEXIN MONOHYDRATE 500 MG CAPSULE PO SCH ×4 (00:40→23:29)
[2021-06-21] MEDS ORDERED: PNEUMOCOCCAL VACCINE POLYVALENT 0.5 ML VIAL [PPSV23] IM. ONE (03:15)
[2021-06-21] MEDS: HYDROCODONE/ACETAMINOPHEN 5-325 MG TABLET PO PRN (03:17)
[2021-06-21 06:49] LABS: GLUCOMETER DEV NAME(LOC) 5S.1; GLUCOSE,POINT OF CARE 130 MG/DL (70-110)
[2021-06-21 07:51] LABS: BILIRUBIN,URINE NEGATIVE (NEGATIVE); GLUCOSE, URINE (UA) NEGATIVE (NEGATIVE); KETONES,URINE NEGATIVE (NEGATIVE); LEUKOCYTE ESTERASE ,URINE NEGATIVE (NEGATIVE); NITRATE,URINE NEGATIVE (NEGATIVE); OCCULT BLOOD,URINE MODERATE (NEGATIVE); PH,URINE 5.5 (5.0-8.0); PROTEIN,URINE SEE CONFIRM (NEGATIVE); UROBILINOGEN,URINE 0.2 mg/dL (<=1.0)
[2021-06-21] MEDS: CALCIUM ACETATE 667 MG CAPSULE PO SCH ×3 (07:59→17:27)
[2021-06-21] MEDS: FERROUS SULFATE 325 MG EC TABLET PO SCH ×2 (08:00→17:27)
[2021-06-21] MEDS: FAMOTIDINE 20 MG TABLET PO SCH (08:00)
[2021-06-21] MEDS: CARVEDILOL 12.5 MG TABLET PO SCH ×2 (08:00→20:26)
[2021-06-21] MEDS: FUROSEMIDE 40 MG TABLET PO SCH (08:00)
[2021-06-21] MEDS: VITAMIN B COMP/VIT C/FOLIC ACID CAPSULE PO SCH (08:00)
[2021-06-21] MEDS: ESCITALOPRAM OXALATE 10 MG TABLET PO SCH (08:00)
[2021-06-21 08:17] LABS: APPEARANCE,URINE HAZY (CLEAR)
[2021-06-21 08:20] LABS: BACTERIA,URINE None Seen /HPF (None Seen); SQUAMOUS EPITHELIAL CELL,UR Rare /LPF (None Seen); SULFOSALICYLIC ACID,URINE 3+ (Negative); WBC,URINE 0-2 /HPF (0-5)
[2021-06-21] MEDS ORDERED: AmLODIPine BESYLATE 10 MG TABLET PO SCH (09:00)
[2021-06-21 12:21] LABS: GLUCOMETER DEV NAME(LOC) 5N.3; GLUCOSE,POINT OF CARE 119 MG/DL (70-110)
[2021-06-21] MEDS: ASPIRIN 81 MG CHEWABLE TABLET PO SCH (20:27)
[2021-06-21] MEDS: SENNA 187 MG TABLET PO SCH (20:27)
[2021-06-21] MEDS: INSULIN LISPRO 100 UNITS/ML SQ PRN (20:31)
[2021-06-22 00:55] LABS: GLUCOMETER DEV NAME(LOC) 5S.1; GLUCOSE,POINT OF CARE 124 MG/DL (70-110)
[2021-06-22 00:55] LABS: GLUCOMETER DEV NAME(LOC) 5S.2B; GLUCOSE,POINT OF CARE 194 MG/DL (70-110)
[2021-06-22] MEDS: LORazepam 0.5 MG TABLET PO PRN ×2 (01:41→22:04)
[2021-06-22 04:20] VITALS: BP 123/75
[2021-06-22 07:33] VITALS: BP 134/70
[2021-06-22] MEDS: FUROSEMIDE 40 MG TABLET PO SCH (08:37)
[2021-06-22] MEDS: CEPHALEXIN MONOHYDRATE 500 MG CAPSULE PO SCH ×2 (08:37→17:34)
[2021-06-22] MEDS: FERROUS SULFATE 325 MG EC TABLET PO SCH (08:38)
[2021-06-22] MEDS: FAMOTIDINE 20 MG TABLET PO SCH (08:38)
[2021-06-22] MEDS: VITAMIN B COMP/VIT C/FOLIC ACID CAPSULE PO SCH (08:38)
[2021-06-22] MEDS: ESCITALOPRAM OXALATE 10 MG TABLET PO SCH (08:38)
[2021-06-22] MEDS: CARVEDILOL 12.5 MG TABLET PO SCH ×2 (08:38→21:43)
[2021-06-22] MEDS: CALCIUM ACETATE 667 MG CAPSULE PO SCH ×3 (08:38→17:36)
[2021-06-22] MEDS ORDERED: [UNRECOGNIZED DRUG - OTHER] SQ SCH (09:00)
[2021-06-22] MEDS ORDERED: EPOETIN ALFA 10,000 UNITS/ML 2 ML VIAL SQ SCH (09:00)
[2021-06-22 10:59] VITALS: BP 126/66
[2021-06-22 15:34] VITALS: BP 127/76
[2021-06-22] MEDS ORDERED: SODIUM CHLORIDE 0.9% 1,000 ML ONE (18:00)
[2021-06-22 21:33] VITALS: BP 116/74
[2021-06-22] MEDS: HYDROCODONE/ACETAMINOPHEN 5-325 MG TABLET PO PRN (21:42)
[2021-06-22] MEDS: ASPIRIN 81 MG CHEWABLE TABLET PO SCH (21:43)
[2021-06-22] MEDS: ATORVASTATIN CALCIUM 10 MG TABLET PO SCH (21:44)
[2021-06-22] MEDS: SENNA 187 MG TABLET PO SCH (21:47)
[2021-06-22] MEDS: DiphenhydrAMINE/ZINC ACET 30 GM CREAM TP PRN (21:55)
[2021-06-22 22:28] LABS: GLUCOMETER DEV NAME(LOC) 5S.2B; GLUCOSE,POINT OF CARE 98 MG/DL (70-110)
[2021-06-22 22:28] LABS: GLUCOMETER DEV NAME(LOC) 5S.2B; GLUCOSE,POINT OF CARE 123 MG/DL (70-110)
[2021-06-22 23:37] VITALS: BP 126/70
[2021-06-23] MEDS: CEPHALEXIN MONOHYDRATE 500 MG CAPSULE PO SCH ×3 (00:38→18:11)
[2021-06-23 04:00] VITALS: BP 135/80
[2021-06-23] MEDS: HYDROCODONE/ACETAMINOPHEN 5-325 MG TABLET PO PRN ×2 (04:21→21:19)
[2021-06-23] MEDS: LORazepam 0.5 MG TABLET PO PRN (04:21)
[2021-06-23] MEDS ORDERED: MORPHINE SULFATE 2 MG/ML SYRINGE IM ONE (06:15)
[2021-06-23] MEDS ORDERED: MORPHINE SULFATE 2 MG/ML SYRINGE IVP ONE (06:30)
[2021-06-23 06:36] LABS: BASOPHILS % (AUTO) 0.4 % (0.0-2.0); EOSINOPHILS % (AUTO) 9.5 % (1.0-6.0); HEMATOCRIT 34.3 % (36-46); HEMOGLOBIN 11.7 g/dL (12.0-16.0); LYMPHOCYTES # (AUTO) 1.9 K/uL (1.0-4.8); MEAN CORPUSCULAR HEMOGLOBIN 33.2 pg (26.0-34.0); MEAN CORPUSCULAR HGB CONC 34.1 G/dL (31.0-37.0); MEAN CORPUSCULAR VOLUME 97 fL (80-100); MONOCYTES % (AUTO) 9.1 % (2.0-9.0); NEUTROPHILS # (AUTO) 6.7 K/uL (1.8-7.7); PLATELET COUNT (AUTO) 519 K/uL (150-450); RED BLOOD CELL COUNT(AUTO) 3.53 MIL/uL (4.00-5.20); RED CELL DISTRIBUTION WIDTH 14.6 % (11.5-14.5)
[2021-06-23 06:41] LABS: CALCIUM, TOTAL 8.7 mg/dL (8.8-10.5); CARBON DIOXIDE 26 mmol/L (22-29); CHOL/HDL RATIO 5.3 (3.9-5.7); CHOLESTEROL 217 mg/dL (131-200); CREATININE 5.93 mg/dL (0.60-1.30); GLOMERULAR FILTR. RATE CALC 8 mL/min (>60); GLUCOSE,RANDOM 105 mg/dL (70-110); HDL CHOLESTEROL 41 mg/dL (40-60); TRIGLYCERIDES 492 mg/dL (15-150); UREA NITROGEN, BLOOD 45 mg/dL (7-18)
[2021-06-23 06:45] LABS: GLUCOMETER DEV NAME(LOC) 5S.1; GLUCOSE,POINT OF CARE 103 MG/DL (70-110)
[2021-06-23 06:45] LABS: GLUCOMETER DEV NAME(LOC) 5S.1; GLUCOSE,POINT OF CARE 98 MG/DL (70-110)
[2021-06-23 06:46] LABS: ANION GAP 11 mmol/L (8-16); CHLORIDE 95 mmol/L (98-107); POTASSIUM 3.6 mmol/L (3.5-5.1); SODIUM SERUM 132 mmol/L (136-145)
[2021-06-23 07:25] LABS: GLUCOMETER DEV NAME(LOC) 5S.2B; GLUCOSE,POINT OF CARE 76 MG/DL (70-110)
[2021-06-23 07:37] VITALS: BP 119/73
[2021-06-23] MEDS: VITAMIN B COMP/VIT C/FOLIC ACID CAPSULE PO SCH (08:36)
[2021-06-23] MEDS: FAMOTIDINE 20 MG TABLET PO SCH (08:36)
[2021-06-23] MEDS: CALCIUM ACETATE 667 MG CAPSULE PO SCH ×3 (08:36→18:11)
[2021-06-23] MEDS: FUROSEMIDE 40 MG TABLET PO SCH (08:36)
[2021-06-23] MEDS: ESCITALOPRAM OXALATE 10 MG TABLET PO SCH (08:37)
[2021-06-23] MEDS: CARVEDILOL 12.5 MG TABLET PO SCH ×2 (08:37→21:19)
[2021-06-23] MEDS: LISINOPRIL 5 MG TABLET PO SCH (09:00)
[2021-06-23 11:22] VITALS: BP_SYST 107; BP_SYST 71; BP_DIAS 57
[2021-06-23 15:24] VITALS: BP 118/66
[2021-06-23 19:28] LABS: GLUCOMETER DEV NAME(LOC) 5S.2B; GLUCOSE,POINT OF CARE 103 MG/DL (70-110)
[2021-06-23 19:28] LABS: GLUCOMETER DEV NAME(LOC) 5S.2B; GLUCOSE,POINT OF CARE 106 MG/DL (70-110)
[2021-06-23 19:45] VITALS: BP 120/60
[2021-06-23] MEDS: SENNA 187 MG TABLET PO SCH (21:19)
[2021-06-23] MEDS: ASPIRIN 81 MG CHEWABLE TABLET PO SCH (21:19)
[2021-06-23] MEDS: ATORVASTATIN CALCIUM 10 MG TABLET PO SCH (21:19)
[2021-06-23] MEDS ORDERED: LACTULOSE 20 GM/30 ML SOLUTION UDCUP PO ONE (21:45)
[2021-06-23 23:13] LABS: GLUCOMETER DEV NAME(LOC) 5S.1; GLUCOSE,POINT OF CARE 113 MG/DL (70-110)
[2021-06-24] VITALS (7 sets, daily range): BP systolic 116–139; BP diastolic 64–95
[2021-06-24] MEDS: HYDROCODONE/ACETAMINOPHEN 5-325 MG TABLET PO PRN ×2 (01:44→16:49)
[2021-06-24] MEDS: CEPHALEXIN MONOHYDRATE 500 MG CAPSULE PO SCH ×4 (01:44→23:54)
[2021-06-24] MEDS ORDERED: SODIUM CHLORIDE 0.9% 2,000 ML ONE (08:02)
[2021-06-24] MEDS: CALCIUM ACETATE 667 MG CAPSULE PO SCH ×3 (08:04→17:56)
[2021-06-24] MEDS: FAMOTIDINE 20 MG TABLET PO SCH (08:04)
[2021-06-24] MEDS: VITAMIN B COMP/VIT C/FOLIC ACID CAPSULE PO SCH (08:04)
[2021-06-24] MEDS: FUROSEMIDE 40 MG TABLET PO SCH (08:04)
[2021-06-24] MEDS: LISINOPRIL 5 MG TABLET PO SCH (09:00)
[2021-06-24] MEDS: CARVEDILOL 12.5 MG TABLET PO SCH ×2 (09:00→20:19)
[2021-06-24] MEDS: ESCITALOPRAM OXALATE 10 MG TABLET PO SCH (09:00)
[2021-06-24 10:33] LABS: GLUCOMETER DEV NAME(LOC) 5S.1; GLUCOSE,POINT OF CARE 106 MG/DL (70-110)
[2021-06-24 13:10] LABS: GLUCOMETER DEV NAME(LOC) 5S.1; GLUCOSE,POINT OF CARE 108 MG/DL (70-110)
[2021-06-24] MEDS: MUPIROCIN CALCIUM 2% 22 GM OINTMENT NASAL SCH ×2 (16:49→20:19)
[2021-06-24 18:57] LABS: GLUCOMETER DEV NAME(LOC) 5S.2B; GLUCOSE,POINT OF CARE 106 MG/DL (70-110)
[2021-06-24] MEDS: ATORVASTATIN CALCIUM 10 MG TABLET PO SCH (20:19)
[2021-06-24] MEDS: ASPIRIN 81 MG CHEWABLE TABLET PO SCH (20:19)
[2021-06-24] MEDS: SENNA 187 MG TABLET PO SCH (20:19)
[2021-06-24] MEDS: MECLIZINE HCL 25 MG TABLET PO PRN (20:20)
[2021-06-24] MEDS: INSULIN LISPRO 100 UNITS/ML SQ PRN (20:22)
[2021-06-24 22:28] LABS: GLUCOMETER DEV NAME(LOC) 5S.1; GLUCOSE,POINT OF CARE 171 MG/DL (70-110)
[2021-06-25] MEDS: HYDROCODONE/ACETAMINOPHEN 5-325 MG TABLET PO PRN ×2 (02:40→22:53)
[2021-06-25 04:15] VITALS: BP 113/72
[2021-06-25 08:05] VITALS: BP 124/76
[2021-06-25] MEDS: FUROSEMIDE 40 MG TABLET PO SCH (08:27)
[2021-06-25] MEDS: FAMOTIDINE 20 MG TABLET PO SCH (08:27)
[2021-06-25] MEDS: VITAMIN B COMP/VIT C/FOLIC ACID CAPSULE PO SCH (08:27)
[2021-06-25] MEDS: CALCIUM ACETATE 667 MG CAPSULE PO SCH ×3 (08:27→17:43)
[2021-06-25] MEDS: LISINOPRIL 5 MG TABLET PO SCH (08:27)
[2021-06-25] MEDS: CEPHALEXIN MONOHYDRATE 500 MG CAPSULE PO SCH ×3 (08:28→23:30)
[2021-06-25] MEDS: ESCITALOPRAM OXALATE 10 MG TABLET PO SCH (08:28)
[2021-06-25] MEDS: CARVEDILOL 12.5 MG TABLET PO SCH ×2 (08:28→20:47)
[2021-06-25] MEDS: MUPIROCIN CALCIUM 2% 22 GM OINTMENT NASAL SCH ×2 (08:31→20:47)
[2021-06-25 08:36] LABS: GLUCOMETER DEV NAME(LOC) 5S.2B; GLUCOSE,POINT OF CARE 108 MG/DL (70-110)
[2021-06-25 11:25] VITALS: BP 143/91
[2021-06-25 12:34] LABS: GLUCOMETER DEV NAME(LOC) 5S.2B; GLUCOSE,POINT OF CARE 109 MG/DL (70-110)
[2021-06-25 15:09] VITALS: BP 142/97
[2021-06-25] MEDS ORDERED: LIDOCAINE/PF 1% 2 ML VIAL CAUDAL ONE (15:22)
[2021-06-25 18:53] LABS: GLUCOMETER DEV NAME(LOC) 5S.2B; GLUCOSE,POINT OF CARE 110 MG/DL (70-110)
[2021-06-25 19:46] VITALS: BP 159/99
[2021-06-25] MEDS: ASPIRIN 81 MG CHEWABLE TABLET PO SCH (20:46)
[2021-06-25] MEDS: ATORVASTATIN CALCIUM 10 MG TABLET PO SCH (20:46)
[2021-06-25] MEDS: SENNA 187 MG TABLET PO SCH (20:46)
[2021-06-25] MEDS: MECLIZINE HCL 25 MG TABLET PO PRN (20:46)
[2021-06-25 21:56] LABS: GLUCOMETER DEV NAME(LOC) 5S.1; GLUCOSE,POINT OF CARE 130 MG/DL (70-110)
[2021-06-25] MEDS: LORazepam 0.5 MG TABLET PO PRN (23:30)
[2021-06-26 00:45] VITALS: BP 138/99
[2021-06-26 05:32] VITALS: BP 143/91
[2021-06-26 07:04] LABS: GLUCOMETER DEV NAME(LOC) 5S.2B; GLUCOSE,POINT OF CARE 96 MG/DL (70-110)
[2021-06-26 08:04] VITALS: BP 137/78
[2021-06-26] MEDS: VITAMIN B COMP/VIT C/FOLIC ACID CAPSULE PO SCH (08:07)
[2021-06-26] MEDS: CALCIUM ACETATE 667 MG CAPSULE PO SCH ×2 (08:07→11:48)
[2021-06-26] MEDS: FAMOTIDINE 20 MG TABLET PO SCH (08:07)
[2021-06-26] MEDS: CARVEDILOL 12.5 MG TABLET PO SCH (08:07)
[2021-06-26] MEDS: LISINOPRIL 5 MG TABLET PO SCH (08:07)
[2021-06-26] MEDS: ESCITALOPRAM OXALATE 10 MG TABLET PO SCH (08:07)
[2021-06-26] MEDS: FUROSEMIDE 40 MG TABLET PO SCH (08:07)
[2021-06-26] MEDS: CEPHALEXIN MONOHYDRATE 500 MG CAPSULE PO SCH (08:07)
[2021-06-26] MEDS: MUPIROCIN CALCIUM 2% 22 GM OINTMENT NASAL SCH (08:08)
[2021-06-26 11:10] VITALS: BP 149/96
[2021-06-26] MEDS ORDERED: ATOR10TA84 PO (13:11)
[2021-06-26] MEDS ORDERED: LISI-892 PO (13:16)
[2021-06-26] MEDS ORDERED: MUPI15CR12 NASAL (13:17)
[2021-06-26 20:20] LABS: GLUCOMETER DEV NAME(LOC) 5S.1; GLUCOSE,POINT OF CARE 105 MG/DL (70-110)
[2021-07-10] MEDS ORDERED: CLON0.1T2 PO (19:43)
[2021-07-10] MEDS ORDERED: FERR-72 PO (19:43)
[2021-07-10] MEDS ORDERED: AMLO10TA55 PO (19:43)
== END 2021-06-26 14:08 | DRG 45 ==
LOC: EMS 16:09 → 5S 20:00
PROVIDERS: ADMIT Internal Medicine; ATTEND Internal Medicine
DX: I63.9 Cerebral infarction, unspecified (principal); I13.2 Hypertensive heart and chronic kidney disease with heart failure and with stage 5 chronic kidney disease, or end stage renal disease; I42.9 Cardiomyopathy, unspecified; N18.6 End stage renal disease; R65.10 Systemic inflammatory response syndrome (SIRS) of non-infectious origin without acute organ dysfunction; E11.22 Type 2 diabetes mellitus with diabetic chronic kidney disease; D63.1 Anemia in chronic kidney disease; I50.22 Chronic systolic (congestive) heart failure; I34.0 Nonrheumatic mitral (valve) insufficiency; Z20.822 Contact with and (suspected) exposure to COVID-19; Z79.4 Long term (current) use of insulin; Z79.82 Long term (current) use of aspirin; Z79.899 Other long term (current) drug therapy; Z88.8 Allergy status to other drugs, medicaments and biological substances
CPT/HCPCS: 70450; 70551; 71045; 71275; 80048; 80053; 80061; 81001; 81002; 82962; 83735; 83880; 84100; 84484; 85025; 87040; 87081; 87340; 90935; 93005; 93306; 93880; 97163; 99285; G0378; J0885; J2270; J2405; J3490; J7030; J7050; Q9967; 36415-L1; 36415-TC

== ENCOUNTER 2021-08-16 17:37 | Emergency (ER) | payer MEDICAID ==
[~2021-08-16] VITALS: Ht 157.5 cm; Wt 75.0 kg
[~2021-08-16 17:37] MED LIST changes: -ACET-2247 PO; -AMLO-258 PO; +AMLO10TA55 PO; +ASPI-1444 PO; -ASPI-1450 PO; -ASPI81 PO; +ATOR10TA84 PO; -BISA-151 PO; -CEPH500C2 PO; +CLON0.1T2 PO; -EPOE20002 SQ; -ESCI-8 PO; +ESCI20TA87 PO; -FERR-89 PO; -FURO40 PO; -HYDR-4723 PO; -INSLAN SQ; -LORA-999 PO
[2021-08-16 20:43] LABS: BASOPHILS % (AUTO) 0.6 % (0.0-2.0); EOSINOPHILS % (AUTO) 1.9 % (1.0-6.0); HEMATOCRIT 42.6 % (36-46); HEMOGLOBIN 14.4 g/dL (12.0-16.0); LYMPHOCYTES # (AUTO) 2.7 K/uL (1.0-4.8); LYMPHOCYTES % (AUTO) 17.5 % (22.0-44.0); MEAN CORPUSCULAR HEMOGLOBIN 32.6 pg (26.0-34.0); MEAN CORPUSCULAR HGB CONC 33.7 G/dL (31.0-37.0); MEAN CORPUSCULAR VOLUME 97 fL (80-100); MONOCYTES # (AUTO) 1.3 K/uL (0.1-1.0); MONOCYTES % (AUTO) 8.3 % (2.0-9.0); NEUTROPHILS % (AUTO) 71.7 % (40.0-70.0); PLATELET COUNT (AUTO) 461 K/uL (150-450); RED BLOOD CELL COUNT(AUTO) 4.42 MIL/uL (4.00-5.20); RED CELL DISTRIBUTION WIDTH 13.4 % (11.5-14.5)
[2021-08-16 21:03] LABS: ANION GAP 17 mmol/L (8-16); CALCIUM, TOTAL 9.2 mg/dL (8.8-10.5); CARBON DIOXIDE 27 mmol/L (22-29); CHLORIDE 94 mmol/L (98-107); CREATININE 7.24 mg/dL (0.60-1.30); GLOMERULAR FILTR. RATE CALC 6 mL/min (>60); GLUCOSE,RANDOM 150 mg/dL (70-110); POTASSIUM 4.1 mmol/L (3.5-5.1); SODIUM SERUM 138 mmol/L (136-145); UREA NITROGEN, BLOOD 69 mg/dL (7-18)
[2021-08-16 21:10] LABS: B-TYPE NATRIURETIC PEPTIDE 44 pg/mL (0-100)
[2021-08-16 21:14] LABS: ALANINE AMINOTRANSFERASE 25 U/L (12-78); ALBUMIN 4.8 g/dL (3.4-5.0); ALKALINE PHOSPHATASE 74 U/L (46-116); ASPARTATE AMINOTRANSFERASE 17 U/L (15-37); BILIRUBIN,TOTAL 0.5 mg/dL (0.1-1.0); HCG,QUANTITATIVE < 1 mIU/mL (0-6); LIPASE 209 U/L (73-393); TOTAL PROTEIN, SERUM 9.8 g/dL (6.4-8.2)
[2021-08-16] MEDS ORDERED: ONDANSETRON HCL 4 MG/2 ML VIAL IVP ONE (21:30)
[2021-08-16] MEDS ORDERED: MORPHINE SULFATE 2 MG/ML SYRINGE IVP ONE (21:30)
[2021-08-16] MEDS ORDERED: MORPHINE SULFATE 4 MG/ML SYRINGE IM ONE (21:45)
[2021-08-16] MEDS ORDERED: ONDANSETRON HCL 4 MG TABLET PO ONE (21:45)
[2021-08-16 22:13] VITALS: BP 131/90
== END 2021-08-16 22:50 | disposition home or self-care (01) ==
LOC: EMS 17:39
DX: R07.9 Chest pain, unspecified (principal); E11.22 Type 2 diabetes mellitus with diabetic chronic kidney disease; I12.0 Hypertensive chronic kidney disease with stage 5 chronic kidney disease or end stage renal disease; N18.6 End stage renal disease
CPT/HCPCS: 36415; 71045; 80053; 83690; 83880; 84484; 84702; 85025; 93005; 96372; 99285; J2270; Q0162

== ENCOUNTER 2021-08-18 20:20 | Emergency (ER) | payer MEDICAID ==
[~2021-08-18] VITALS: Ht 160 cm; Wt 75.0 kg
[2021-08-18 20:43] LABS: BASOPHILS % (AUTO) 0.6 % (0.0-2.0); EOSINOPHILS % (AUTO) 2.5 % (1.0-6.0); HEMATOCRIT 38.5 % (36-46); HEMOGLOBIN 12.9 g/dL (12.0-16.0); LYMPHOCYTES % (AUTO) 22.2 % (22.0-44.0); MEAN CORPUSCULAR HEMOGLOBIN 31.8 pg (26.0-34.0); MEAN CORPUSCULAR HGB CONC 33.4 G/dL (31.0-37.0); MEAN CORPUSCULAR VOLUME 95 fL (80-100); MONOCYTES # (AUTO) 1.7 K/uL (0.1-1.0); MONOCYTES % (AUTO) 12.6 % (2.0-9.0); NEUTROPHILS # (AUTO) 8.5 K/uL (1.8-7.7); NEUTROPHILS % (AUTO) 62.1 % (40.0-70.0); PLATELET COUNT (AUTO) 400 K/uL (150-450); RED BLOOD CELL COUNT(AUTO) 4.05 MIL/uL (4.00-5.20); RED CELL DISTRIBUTION WIDTH 13.3 % (11.5-14.5)
[2021-08-18 20:52] LABS: CALCIUM, TOTAL 8.3 mg/dL (8.8-10.5); CREATININE 7.31 mg/dL (0.60-1.30)
[2021-08-18 20:56] LABS: PROTHROMBIN TIME 10.3 SEC (9.4-11.6)
[2021-08-18 20:57] LABS: ALBUMIN 3.9 g/dL (3.4-5.0); BILIRUBIN,TOTAL 0.4 mg/dL (0.1-1.0); TOTAL PROTEIN, SERUM 8.6 g/dL (6.4-8.2)
[2021-08-18 21:57] LABS: APPEARANCE,URINE CLEAR (CLEAR); BILIRUBIN,URINE NEGATIVE (NEGATIVE); GLUCOSE, URINE (UA) NEGATIVE (NEGATIVE); KETONES,URINE NEGATIVE (NEGATIVE); LEUKOCYTE ESTERASE ,URINE NEGATIVE (NEGATIVE); NITRATE,URINE NEGATIVE (NEGATIVE); OCCULT BLOOD,URINE TRACE (NEGATIVE); PH,URINE 6.5 (5.0-8.0); PROTEIN,URINE SEE CONFIRM (NEGATIVE)
[2021-08-18 22:07] LABS: BACTERIA,URINE Moderate /HPF (None Seen); RBC,URINE 0-2 /HPF (0-2); SQUAMOUS EPITHELIAL CELL,UR Moderate /LPF (None Seen); SULFOSALICYLIC ACID,URINE 3+ (Negative); WBC,URINE 0-2 /HPF (0-5)
[2021-08-18 22:34] VITALS: BP 130/80
== END 2021-08-18 23:19 | disposition home or self-care (01) ==
LOC: EMS 20:24
DX: I12.0 Hypertensive chronic kidney disease with stage 5 chronic kidney disease or end stage renal disease (principal); E11.22 Type 2 diabetes mellitus with diabetic chronic kidney disease; N18.6 End stage renal disease; Z99.2 Dependence on renal dialysis; Z90.89 Acquired absence of other organs; Z88.6 Allergy status to analgesic agent; Z79.82 Long term (current) use of aspirin; Z79.4 Long term (current) use of insulin
CPT/HCPCS: 71045; 80053; 81001; 81002; 83880; 84484; 85025; 85610; 85730; 87077; 87086; 87186; 93005; 99285; 36415-L1; 36415-TC

== ENCOUNTER 2021-09-03 15:57 | Emergency (ER) | payer MEDICAID ==
[~2021-09-03] VITALS: Ht 157.5 cm; Wt 71.0 kg
[2021-09-03 17:31] LABS: BASOPHILS % (AUTO) 0.9 % (0.0-2.0); EOSINOPHILS % (AUTO) 2.8 % (1.0-6.0); HEMATOCRIT 41.1 % (36-46); HEMOGLOBIN 13.9 g/dL (12.0-16.0); LYMPHOCYTES # (AUTO) 2.6 K/uL (1.0-4.8); LYMPHOCYTES % (AUTO) 15.6 % (22.0-44.0); MEAN CORPUSCULAR HEMOGLOBIN 32.1 pg (26.0-34.0); MEAN CORPUSCULAR HGB CONC 33.8 G/dL (31.0-37.0); MEAN CORPUSCULAR VOLUME 95 fL (80-100); MONOCYTES % (AUTO) 11.7 % (2.0-9.0); NEUTROPHILS # (AUTO) 11.7 K/uL (1.8-7.7); PLATELET COUNT (AUTO) 436 K/uL (150-450); RED BLOOD CELL COUNT(AUTO) 4.32 MIL/uL (4.00-5.20); RED CELL DISTRIBUTION WIDTH 12.9 % (11.5-14.5)
[2021-09-03 17:46] LABS: CALCIUM, TOTAL 9.5 mg/dL (8.8-10.5); CREATININE 6.87 mg/dL (0.60-1.30); POTASSIUM 3.9 mmol/L (3.5-5.1); PROTHROMBIN TIME 10.2 SEC (9.4-11.6)
[2021-09-03 17:54] LABS: ALBUMIN 4.6 g/dL (3.4-5.0); BILIRUBIN,TOTAL 0.5 mg/dL (0.1-1.0)
[2021-09-03 18:34] VITALS: BP 130/91
== END 2021-09-03 18:35 | disposition home or self-care (01) ==
LOC: EMS 15:57
DX: N64.4 Mastodynia (principal); I10 Essential (primary) hypertension; Z88.6 Allergy status to analgesic agent; Z79.82 Long term (current) use of aspirin; Z79.4 Long term (current) use of insulin
CPT/HCPCS: 71045; 80053; 82550; 83880; 84484; 84702; 85025; 85610; 85730; 93005; 99285; 36415-L1; 36415-TC

== ENCOUNTER 2022-01-04 13:25 | Emergency (ER) | payer MEDICAID ==
[~2022-01-04] VITALS: Ht 157.5 cm; Wt 77.0 kg
[~2022-01-04 13:25] MED LIST changes: -AMLO10TA55 PO; -ATOR10TA84 PO; +ATOR40TA71 PO; +DOCU-350 PO; -MECL-160 PO
[2022-01-04 14:24] VITALS: BP 143/97
[2022-01-04] MEDS ORDERED: LOPERAMIDE HCL 2 MG CAPSULE PO ONE (14:30)
[2022-01-04] MEDS ORDERED: ACETAMINOPHEN 500 MG TABLET PO ONE (14:30)
[2022-01-04 14:53] LABS: BASOPHILS % (AUTO) 0.7 % (0.0-2.0); EOSINOPHILS % (AUTO) 4.7 % (1.0-6.0); HEMATOCRIT 31.3 % (36-46); HEMOGLOBIN 10.8 g/dL (12.0-16.0); LYMPHOCYTES # (AUTO) 1.6 K/uL (1.0-4.8); LYMPHOCYTES % (AUTO) 13.2 % (22.0-44.0); MEAN CORPUSCULAR HEMOGLOBIN 31.5 pg (26.0-34.0); MEAN CORPUSCULAR HGB CONC 34.4 G/dL (31.0-37.0); MEAN CORPUSCULAR VOLUME 91 fL (80-100); MONOCYTES % (AUTO) 8.6 % (2.0-9.0); NEUTROPHILS # (AUTO) 8.9 K/uL (1.8-7.7); NEUTROPHILS % (AUTO) 72.8 % (40.0-70.0); PLATELET COUNT (AUTO) 565 K/uL (150-450); RED BLOOD CELL COUNT(AUTO) 3.42 MIL/uL (4.00-5.20); RED CELL DISTRIBUTION WIDTH 13.9 % (11.5-14.5)
[2022-01-04 15:00] LABS: CALCIUM, TOTAL 7.8 mg/dL (8.8-10.5); CREATININE 8.64 mg/dL (0.60-1.30); POTASSIUM 3.3 mmol/L (3.5-5.1)
== END 2022-01-04 16:00 | disposition home or self-care (01) ==
LOC: EMS 13:25
DX: R07.89 Other chest pain (principal); R19.7 Diarrhea, unspecified; I12.0 Hypertensive chronic kidney disease with stage 5 chronic kidney disease or end stage renal disease; N18.6 End stage renal disease; Z88.6 Allergy status to analgesic agent; Z79.82 Long term (current) use of aspirin; Z79.84 Long term (current) use of oral hypoglycemic drugs; Z79.899 Other long term (current) drug therapy; Z99.2 Dependence on renal dialysis
CPT/HCPCS: 71045; 80048; 84484; 85025; 93005; 99285; 36415-L1; 36415-TC

== ENCOUNTER 2022-02-05 21:50 | Emergency (ER) | payer MEDICAID ==
[~2022-02-05] VITALS: Ht 157.5 cm; Wt 78.0 kg
[~2022-02-05 21:50] MED LIST changes: -DOCU-350 PO; +DOCU250C99 PO
[2022-02-05 22:40] LABS: BASOPHILS % (AUTO) 0.6 % (0.0-2.0); EOSINOPHILS % (AUTO) 1.6 % (1.0-6.0); HEMATOCRIT 29.7 % (36-46); HEMOGLOBIN 10.3 g/dL (12.0-16.0); LYMPHOCYTES # (AUTO) 2.4 K/uL (1.0-4.8); MEAN CORPUSCULAR HEMOGLOBIN 32.6 pg (26.0-34.0); MEAN CORPUSCULAR HGB CONC 34.7 G/dL (31.0-37.0); MEAN CORPUSCULAR VOLUME 94 fL (80-100); MONOCYTES # (AUTO) 1.1 K/uL (0.1-1.0); MONOCYTES % (AUTO) 8.1 % (2.0-9.0); NEUTROPHILS # (AUTO) 10.3 K/uL (1.8-7.7); NEUTROPHILS % (AUTO) 72.7 % (40.0-70.0); PLATELET COUNT (AUTO) 468 K/uL (150-450); RED BLOOD CELL COUNT(AUTO) 3.16 MIL/uL (4.00-5.20); RED CELL DISTRIBUTION WIDTH 15.2 % (11.5-14.5)
[2022-02-05 22:59] LABS: INR 0.9 (0.9-1.1); PROTHROMBIN TIME 9.8 SEC (9.4-11.6)
[2022-02-05 23:04] LABS: ALBUMIN 3.2 g/dL (3.4-5.0); BILIRUBIN,TOTAL 0.3 mg/dL (0.1-1.0); CALCIUM, TOTAL 7.6 mg/dL (8.8-10.5); CREATININE 6.8 mg/dL (0.60-1.30); TOTAL PROTEIN, SERUM 7.8 g/dL (6.4-8.2)
[2022-02-05 23:13] LABS: POTASSIUM 2.7 mmol/L (3.5-5.1)
[2022-02-05] MEDS ORDERED: MAGNESIUM SULFATE 2 GM/WATER 50 ML IV ONE (23:45)
[2022-02-06 02:00] VITALS: BP 137/80
== END 2022-02-06 03:04 | disposition home or self-care (01) ==
LOC: EMS 21:51
DX: E87.6 Hypokalemia (principal); I45.81 Long QT syndrome; R42 Dizziness and giddiness; I12.0 Hypertensive chronic kidney disease with stage 5 chronic kidney disease or end stage renal disease; N18.6 End stage renal disease; Z79.4 Long term (current) use of insulin; Z88.6 Allergy status to analgesic agent; Z99.2 Dependence on renal dialysis
CPT/HCPCS: 71045; 80053; 82550; 82962; 83880; 84484; 85025; 85610; 85730; 93005; 96365; 96366; 99285; J3475; 36415-L1; 36415-TC

== ENCOUNTER 2022-05-01 12:29 | Emergency (ER) | payer MEDICAID ==
[~2022-05-01] VITALS: Ht 160 cm; Wt 78.0 kg
[~2022-05-01 12:29] MED LIST changes: +DOCU-350 PO; -DOCU250C99 PO
[2022-05-01] MEDS ORDERED: ONDANSETRON HCL 4 MG/2 ML VIAL IVP ONE (13:15)
[2022-05-01] MEDS ORDERED: LOPERAMIDE HCL 2 MG CAPSULE PO ONE (13:15)
[2022-05-01 13:26] LABS: BASOPHILS % (AUTO) 0.7 % (0.0-2.0); EOSINOPHILS % (AUTO) 1.7 % (1.0-6.0); LYMPHOCYTES # (AUTO) 1.5 K/uL (1.0-4.8); LYMPHOCYTES % (AUTO) 16.7 % (22.0-44.0); MEAN CORPUSCULAR HEMOGLOBIN 31.8 pg (26.0-34.0); MEAN CORPUSCULAR HGB CONC 34.4 G/dL (31.0-37.0); MEAN CORPUSCULAR VOLUME 93 fL (80-100); MONOCYTES # (AUTO) 1.1 K/uL (0.1-1.0); MONOCYTES % (AUTO) 12.1 % (2.0-9.0); NEUTROPHILS # (AUTO) 6.1 K/uL (1.8-7.7); NEUTROPHILS % (AUTO) 68.8 % (40.0-70.0); PLATELET COUNT (AUTO) 356 K/uL (150-450); RED BLOOD CELL COUNT(AUTO) 3.78 MIL/uL (4.00-5.20); RED CELL DISTRIBUTION WIDTH 13.8 % (11.5-14.5)
[2022-05-01 13:53] LABS: ANION GAP 15 mmol/L (8-16); CARBON DIOXIDE 21 mmol/L (22-29); CHLORIDE 97 mmol/L (98-107); CREATININE 7.36 mg/dL (0.60-1.30); GLUCOSE,RANDOM 205 mg/dL (70-110); POTASSIUM 3.2 mmol/L (3.5-5.1); SODIUM SERUM 133 mmol/L (136-145); UREA NITROGEN, BLOOD 51 mg/dL (7-18)
[2022-05-01 13:54] LABS: GLOMERULAR FILTR. RATE CALC 6 mL/min (>60)
[2022-05-01 14:24] LABS: ALANINE AMINOTRANSFERASE 26 U/L (12-78); ALBUMIN 3.1 g/dL (3.4-5.0); ALKALINE PHOSPHATASE 87 U/L (46-116); ASPARTATE AMINOTRANSFERASE 23 U/L (15-37); BILIRUBIN,TOTAL 0.2 mg/dL (0.1-1.0); HCG,QUANTITATIVE < 1 mIU/mL (0-6); LIPASE 249 U/L (73-393); TOTAL PROTEIN, SERUM 7.9 g/dL (6.4-8.2)
[2022-05-01] MEDS ORDERED: LOPE-232 PO (15:47)
[2022-05-01] MEDS ORDERED: ONDA-104 PO (15:47)
[2022-05-01 16:18] VITALS: BP 141/85
== END 2022-05-01 16:55 | disposition home or self-care (01) ==
LOC: EMS 12:29
DX: K52.9 Noninfective gastroenteritis and colitis, unspecified (principal); I12.0 Hypertensive chronic kidney disease with stage 5 chronic kidney disease or end stage renal disease; N18.6 End stage renal disease; Z99.2 Dependence on renal dialysis; Z87.898 Personal history of other specified conditions; Z98.890 Other specified postprocedural states; Z88.8 Allergy status to other drugs, medicaments and biological substances
CPT/HCPCS: 99285; 96374; 71045; 80053; 83690; 83735; 84484; 84702; 85025; 36415; 93005; J2405

== ENCOUNTER 2022-05-14 12:02 | Inpatient (IN) | payer MEDICAID ==
[~2022-05-14] VITALS: Ht 157.5 cm; Wt 80.7 kg
[~2022-05-14 12:02] MED LIST changes: +LOPE-232 PO; +ONDA-104 PO
[2022-05-14 13:01] LABS: BASOPHILS % (AUTO) 0.5 % (0.0-2.0); HEMATOCRIT 33.7 % (36-46); HEMOGLOBIN 11.5 g/dL (12.0-16.0); LYMPHOCYTES # (AUTO) 2.2 K/uL (1.0-4.8); LYMPHOCYTES % (AUTO) 19.7 % (22.0-44.0); MEAN CORPUSCULAR HEMOGLOBIN 31.2 pg (26.0-34.0); MEAN CORPUSCULAR HGB CONC 34.1 G/dL (31.0-37.0); MEAN CORPUSCULAR VOLUME 92 fL (80-100); MONOCYTES # (AUTO) 0.9 K/uL (0.1-1.0); MONOCYTES % (AUTO) 8.1 % (2.0-9.0); NEUTROPHILS # (AUTO) 7.9 K/uL (1.8-7.7); NEUTROPHILS % (AUTO) 69.7 % (40.0-70.0); PLATELET COUNT (AUTO) 408 K/uL (150-450); RED BLOOD CELL COUNT(AUTO) 3.68 MIL/uL (4.00-5.20); RED CELL DISTRIBUTION WIDTH 13.9 % (11.5-14.5)
[2022-05-14 13:11] LABS: ANION GAP 17 mmol/L (8-16); CALCIUM, TOTAL 7.8 mg/dL (8.8-10.5); CARBON DIOXIDE 20 mmol/L (22-29); CHLORIDE 97 mmol/L (98-107); CREATININE 5.72 mg/dL (0.60-1.30); GLUCOSE,RANDOM 156 mg/dL (70-110); SODIUM SERUM 134 mmol/L (136-145); UREA NITROGEN, BLOOD 59 mg/dL (7-18)
[2022-05-14 13:15] LABS: GLOMERULAR FILTR. RATE CALC 8 mL/min (>60); INR 0.9 (0.9-1.1)
[2022-05-14 13:19] LABS: ALANINE AMINOTRANSFERASE 10 U/L (12-78); ALBUMIN 2.8 g/dL (3.4-5.0); ALKALINE PHOSPHATASE 74 U/L (46-116); BILIRUBIN,TOTAL 0.3 mg/dL (0.1-1.0); TOTAL PROTEIN, SERUM 7.4 g/dL (6.4-8.2)
[2022-05-14 13:37] LABS: ASPARTATE AMINOTRANSFERASE < 5 U/L (15-37)
[2022-05-14] MEDS ORDERED: ACETAMINOPHEN 500 MG TABLET PO ONE (14:30)
[2022-05-14] MEDS ORDERED: MECLIZINE HCL 25 MG TABLET PO ONE (14:30)
[2022-05-14] MEDS ORDERED: ACETAMINOPHEN 325 MG TABLET PO PRN (15:45)
[2022-05-14] MEDS ORDERED: 0.9% SODIUM CHLORIDE 10 ML SYRINGE IVP PRN (15:45)
[2022-05-14] MEDS ORDERED: ONDANSETRON HCL 4 MG/2 ML VIAL IVP PRN (15:45)
[2022-05-14 17:37] VITALS: BP 175/107
[2022-05-14] MEDS ORDERED: AMLO10TA55 PO (18:36)
[2022-05-14] MEDS ORDERED: DULA0.75 SQ (18:36)
[2022-05-14 20:45] VITALS: BP 153/98
[2022-05-14] MEDS ORDERED: DiphenhydrAMINE HCL 25 MG CAPSULE PO ONE (20:45)
[2022-05-14] MEDS: DOCUSATE SODIUM 250 MG CAPSULE PO SCH (21:13)
[2022-05-14] MEDS: SENNA 187 MG TABLET PO SCH (21:13)
[2022-05-14] MEDS: CloNIDine HCL 0.1 MG TABLET PO SCH (21:14)
[2022-05-14] MEDS: ATORVASTATIN CALCIUM 40 MG TABLET PO SCH (21:14)
[2022-05-14] MEDS: CARVEDILOL 12.5 MG TABLET PO SCH (21:14)
[2022-05-14] MEDS: ESCITALOPRAM OXALATE 20 MG TABLET PO SCH (21:18)
[2022-05-14 22:19] LABS: COVID AG,FIA SOURCE NASAL SWAB
[2022-05-14 23:51] VITALS: BP 153/99
[2022-05-15] VITALS (18 sets, daily range): BP systolic 118–174; BP diastolic 72–113
[2022-05-15 01:10] LABS: APPEARANCE,URINE CLEAR (CLEAR); BILIRUBIN,URINE NEGATIVE (NEGATIVE); GLUCOSE, URINE (UA) 300-500 mg/dL (NEGATIVE); KETONES,URINE NEGATIVE (NEGATIVE); LEUKOCYTE ESTERASE ,URINE NEGATIVE (NEGATIVE); NITRATE,URINE NEGATIVE (NEGATIVE); OCCULT BLOOD,URINE NEGATIVE (NEGATIVE); PH,URINE 6.5 (5.0-8.0); PROTEIN,URINE 100-200,SEE CONFIRM mg/dL (NEGATIVE); SPECIFIC GRAVITIY, URINE 1.012 (1.003-1.030); UROBILINOGEN,URINE <=1.0 mg/dL (<=1.0)
[2022-05-15 01:32] LABS: SULFOSALICYLIC ACID,URINE 1+ (Negative)
[2022-05-15 01:33] LABS: BACTERIA,URINE None Seen /HPF (None Seen); RBC,URINE 0-2 /HPF (0-2); SQUAMOUS EPITHELIAL CELL,UR Moderate /LPF (None Seen); WBC,URINE 0-2 /HPF (0-5)
[2022-05-15] MEDS ORDERED: MORPHINE SULFATE 2 MG/ML SYRINGE IVP ONE (02:15)
[2022-05-15 06:05] LABS: BASOPHILS % (AUTO) 0.6 % (0.0-2.0); EOSINOPHILS % (AUTO) 2.2 % (1.0-6.0); HEMATOCRIT 32.3 % (36-46); HEMOGLOBIN 11.2 g/dL (12.0-16.0); LYMPHOCYTES # (AUTO) 2.6 K/uL (1.0-4.8); LYMPHOCYTES % (AUTO) 25.3 % (22.0-44.0); MEAN CORPUSCULAR HGB CONC 34.6 G/dL (31.0-37.0); MEAN CORPUSCULAR VOLUME 93 fL (80-100); MONOCYTES # (AUTO) 0.8 K/uL (0.1-1.0); NEUTROPHILS # (AUTO) 6.6 K/uL (1.8-7.7); NEUTROPHILS % (AUTO) 63.9 % (40.0-70.0); PLATELET COUNT (AUTO) 403 K/uL (150-450); RED BLOOD CELL COUNT(AUTO) 3.49 MIL/uL (4.00-5.20)
[2022-05-15 07:27] LABS: ALBUMIN 2.7 g/dL (3.4-5.0); BILIRUBIN,TOTAL 0.2 mg/dL (0.1-1.0); CALCIUM, TOTAL 7.3 mg/dL (8.8-10.5); CREATININE 5.73 mg/dL (0.60-1.30); TOTAL PROTEIN, SERUM 7.2 g/dL (6.4-8.2)
[2022-05-15 07:28] LABS: POTASSIUM 2.7 mmol/L (3.5-5.1)
[2022-05-15] MEDS: FAMOTIDINE 20 MG TABLET PO SCH (11:16)
[2022-05-15] MEDS: VITAMIN B COMP/VIT C/FOLIC ACID CAPSULE PO SCH (11:16)
[2022-05-15] MEDS: ASPIRIN 81 MG DR TABLET PO SCH (11:16)
[2022-05-15] MEDS: CALCIUM ACETATE 667 MG CAPSULE PO SCH ×3 (11:16→17:19)
[2022-05-15] MEDS: CloNIDine HCL 0.1 MG TABLET PO SCH ×3 (11:16→21:31)
[2022-05-15] MEDS: CARVEDILOL 12.5 MG TABLET PO SCH ×2 (11:17→21:31)
[2022-05-15 18:36] LABS: GLUCOMETER DEV NAME(LOC) 5N.1C; GLUCOSE,POINT OF CARE 194 MG/DL (70-110)
[2022-05-15] MEDS ORDERED: MECLIZINE HCL 12.5 MG TABLET PO PRN (20:45)
[2022-05-15] MEDS: ATORVASTATIN CALCIUM 40 MG TABLET PO SCH (21:31)
[2022-05-15] MEDS: ESCITALOPRAM OXALATE 20 MG TABLET PO SCH (21:31)
[2022-05-15] MEDS: SENNA 187 MG TABLET PO SCH (21:31)
[2022-05-15] MEDS: DOCUSATE SODIUM 250 MG CAPSULE PO SCH (21:31)
[2022-05-16] VITALS (14 sets, daily range): BP systolic 133–158; BP diastolic 85–110
[2022-05-16 06:39] LABS: BASOPHILS % (AUTO) 0.5 % (0.0-2.0); EOSINOPHILS % (AUTO) 1.9 % (1.0-6.0); HEMATOCRIT 35.2 % (36-46); HEMOGLOBIN 12.1 g/dL (12.0-16.0); LYMPHOCYTES # (AUTO) 2.8 K/uL (1.0-4.8); LYMPHOCYTES % (AUTO) 25.9 % (22.0-44.0); MEAN CORPUSCULAR HEMOGLOBIN 31.6 pg (26.0-34.0); MEAN CORPUSCULAR HGB CONC 34.4 G/dL (31.0-37.0); MEAN CORPUSCULAR VOLUME 92 fL (80-100); MONOCYTES % (AUTO) 9.4 % (2.0-9.0); NEUTROPHILS # (AUTO) 6.8 K/uL (1.8-7.7); NEUTROPHILS % (AUTO) 62.3 % (40.0-70.0); PLATELET COUNT (AUTO) 399 K/uL (150-450); RED BLOOD CELL COUNT(AUTO) 3.83 MIL/uL (4.00-5.20); RED CELL DISTRIBUTION WIDTH 14.2 % (11.5-14.5)
[2022-05-16 07:07] LABS: CALCIUM, TOTAL 8.5 mg/dL (8.8-10.5); CREATININE 5.36 mg/dL (0.60-1.30); PHOSPHORUS 4.1 mg/dL (2.5-4.9)
[2022-05-16 07:39] LABS: POTASSIUM 2.9 mmol/L (3.5-5.1)
[2022-05-16] MEDS: VITAMIN B COMP/VIT C/FOLIC ACID CAPSULE PO SCH (09:25)
[2022-05-16] MEDS: CALCIUM ACETATE 667 MG CAPSULE PO SCH ×2 (09:26→12:00)
[2022-05-16] MEDS: FAMOTIDINE 20 MG TABLET PO SCH (09:26)
[2022-05-16] MEDS: ASPIRIN 81 MG DR TABLET PO SCH (09:26)
[2022-05-16] MEDS ORDERED: SODIUM CHLORIDE 0.9% 1,000 ML ONE (10:24)
[2022-05-16] MEDS: CARVEDILOL 12.5 MG TABLET PO SCH (14:12)
[2022-05-16] MEDS: CloNIDine HCL 0.1 MG TABLET PO SCH ×2 (14:12→17:29)
[2022-05-16] MEDS ORDERED: POTASSIUM CHLORIDE 20 MEQ ER TABLET PO ONE (16:15)
== END 2022-05-16 17:40 | disposition home or self-care (01) | DRG 199 ==
LOC: EMS 12:02 → 5N 15:16
PROVIDERS: ADMIT Hospitalist; ATTEND Hospitalist
PROC: 5A1D70Z Performance of Urinary Filtration, Intermittent, Less than 6 Hours Per Day (ICD-10-PCS; principal; 2022-05-15)
PROC: 5A1D70Z Performance of Urinary Filtration, Intermittent, Less than 6 Hours Per Day (ICD-10-PCS; 2022-05-16)
DX: I16.0 Hypertensive urgency (principal); D63.1 Anemia in chronic kidney disease; N18.6 End stage renal disease; I50.20 Unspecified systolic (congestive) heart failure; R55 Syncope and collapse; I13.2 Hypertensive heart and chronic kidney disease with heart failure and with stage 5 chronic kidney disease, or end stage renal disease; E11.22 Type 2 diabetes mellitus with diabetic chronic kidney disease; E78.5 Hyperlipidemia, unspecified; E87.6 Hypokalemia; E21.3 Hyperparathyroidism, unspecified; Z20.822 Contact with and (suspected) exposure to COVID-19; F32.A Depression, unspecified; F41.9 Anxiety disorder, unspecified; E66.9 Obesity, unspecified; Z68.32 Body mass index [BMI] 32.0-32.9, adult; Z79.899 Other long term (current) drug therapy; Z99.2 Dependence on renal dialysis; Z90.49 Acquired absence of other specified parts of digestive tract; Z88.6 Allergy status to analgesic agent; Z98.891 History of uterine scar from previous surgery
CPT/HCPCS: 71045; 80048; 80053; 81001; 81002; 81003; 82962; 83036; 83735; 84100; 84132; 84484; 85025; 85379; 85610; 85730; 87081; 87340; 90935; 93005; 93306; 93880; 97162; 99285; J2270; J7030; 36415-L1; 36415-TC

== ENCOUNTER 2022-05-22 15:06 | Inpatient (IN) | payer MEDICAID ==
[~2022-05-22] VITALS: Ht 157.5 cm; Wt 84.5 kg
[~2022-05-22 15:06] MED LIST changes: +AMLO10TA55 PO; +DULA0.75 SQ; -LOPE-232 PO; -ONDA-104 PO
[2022-05-22 16:24] LABS: COVID AG,FIA SOURCE NASAL SWAB
[2022-05-22 16:28] LABS: BASOPHILS % (AUTO) 0.7 % (0.0-2.0); EOSINOPHILS % (AUTO) 1.8 % (1.0-6.0); HEMATOCRIT 34.4 % (36-46); LYMPHOCYTES # (AUTO) 1.7 K/uL (1.0-4.8); LYMPHOCYTES % (AUTO) 15.4 % (22.0-44.0); MEAN CORPUSCULAR HEMOGLOBIN 31.6 pg (26.0-34.0); MEAN CORPUSCULAR HGB CONC 34.9 G/dL (31.0-37.0); MEAN CORPUSCULAR VOLUME 90 fL (80-100); MONOCYTES # (AUTO) 0.7 K/uL (0.1-1.0); MONOCYTES % (AUTO) 6.6 % (2.0-9.0); NEUTROPHILS # (AUTO) 8.2 K/uL (1.8-7.7); NEUTROPHILS % (AUTO) 75.5 % (40.0-70.0); PLATELET COUNT (AUTO) 442 K/uL (150-450); RED BLOOD CELL COUNT(AUTO) 3.81 MIL/uL (4.00-5.20); RED CELL DISTRIBUTION WIDTH 14.2 % (11.5-14.5)
[2022-05-22 16:37] LABS: ANION GAP 19 mmol/L (8-16); CALCIUM, TOTAL 9.4 mg/dL (8.8-10.5); CARBON DIOXIDE 28 mmol/L (22-29); CHLORIDE 95 mmol/L (98-107); CREATININE 5.09 mg/dL (0.60-1.30); GLUCOSE,RANDOM 234 mg/dL (70-110); POTASSIUM 3.2 mmol/L (3.5-5.1); SODIUM SERUM 142 mmol/L (136-145); UREA NITROGEN, BLOOD 45 mg/dL (7-18)
[2022-05-22 16:38] LABS: GLOMERULAR FILTR. RATE CALC 9 mL/min (>60)
[2022-05-22 16:50] LABS: B-TYPE NATRIURETIC PEPTIDE 252 pg/mL (0-100)
[2022-05-22 16:57] LABS: ALANINE AMINOTRANSFERASE 27 U/L (12-78); ALBUMIN 3.2 g/dL (3.4-5.0); ALKALINE PHOSPHATASE 83 U/L (46-116); ASPARTATE AMINOTRANSFERASE 24 U/L (15-37); BILIRUBIN,TOTAL 0.5 mg/dL (0.1-1.0); CREATINE KINASE, TOTAL ONLY 38 U/L (26-192); HCG,QUANTITATIVE < 1 mIU/mL (0-6); TOTAL PROTEIN, SERUM 8.4 g/dL (6.4-8.2)
[2022-05-22] MEDS ORDERED: ACETAMINOPHEN 325 MG TABLET PO PRN (17:15)
[2022-05-22] MEDS ORDERED: ONDANSETRON HCL 4 MG/2 ML VIAL IVP PRN (17:15)
[2022-05-22] MEDS ORDERED: DEXTROSE 50%-WATER 25 GM/50 ML SYRINGE IVP PRN (17:15)
[2022-05-22] MEDS ORDERED: MORPHINE SULFATE 2 MG/ML SYRINGE IVP PRN (17:15)
[2022-05-22] MEDS ORDERED: OxyCODONE HCL/ACETAMINOPHEN 5-325 MG TABLET PO PRN (17:15)
[2022-05-22] MEDS ORDERED: POTASSIUM CHLORIDE 8 MEQ ER TABLET PO ONE (17:30)
[2022-05-22] MEDS ORDERED: NITROGLYCERIN 2% (1 GM=INCH) PACKET TP ONE (17:45)
[2022-05-22] MEDS ORDERED: ONDANSETRON HCL 4 MG/2 ML VIAL IVP ONE (18:00)
[2022-05-22] MEDS ORDERED: MORPHINE SULFATE 4 MG/ML SYRINGE IVP ONE (18:00)
[2022-05-22 19:46] LABS: GLUCOSE,POINT OF CARE 137 MG/DL (70-110)
[2022-05-22] MEDS: DOCUSATE SODIUM 100 MG CAPSULE PO SCH (20:30)
[2022-05-22] MEDS: CARVEDILOL 12.5 MG TABLET PO SCH (20:45)
[2022-05-22] MEDS ORDERED: ATORVASTATIN CALCIUM 20 MG TABLET PO SCH (21:00)
[2022-05-23] VITALS (7 sets, daily range): BP systolic 137–165; BP diastolic 86–106
[2022-05-23] MEDS: HEPARIN SODIUM,PORCINE 5,000 UNITS/ML VIAL SQ SCH ×2 (00:34→08:16)
[2022-05-23] MEDS: AmLODIPine BESYLATE 10 MG TABLET PO SCH ×2 (00:35→08:15)
[2022-05-23] MEDS: INSULIN LISPRO 100 UNITS/ML SQ PRN ×2 (07:50→13:07)
[2022-05-23] MEDS: CARVEDILOL 12.5 MG TABLET PO SCH (08:15)
[2022-05-23] MEDS: DOCUSATE SODIUM 100 MG CAPSULE PO SCH (08:15)
[2022-05-23] MEDS ORDERED: ASPIRIN 81 MG CHEWABLE TABLET PO SCH (09:00)
[2022-05-23] MEDS ORDERED: AmLODIPine BESYLATE 10 MG TABLET PO SCH (09:00)
[2022-05-23] MEDS ORDERED: FAMOTIDINE 20 MG TABLET PO SCH (09:00)
[2022-05-23] MEDS ORDERED: SODIUM CHLORIDE 0.9% 2,000 ML ONE (10:59)
[2022-05-23] MEDS ORDERED: AMLO10TA55 PO (13:18)
[2022-05-23 23:43] LABS: GLUCOMETER DEV NAME(LOC) 5N.1C; GLUCOSE,POINT OF CARE 182 MG/DL (70-110)
[2022-05-23 23:43] LABS: GLUCOMETER DEV NAME(LOC) 5N.1C; GLUCOSE,POINT OF CARE 148 MG/DL (70-110)
== END 2022-05-23 16:25 | disposition home or self-care (01) | DRG 470 ==
LOC: EMS 15:08 → 5S 17:15
PROVIDERS: ADMIT Internal Medicine; ATTEND Internal Medicine
PROC: 5A1D70Z Performance of Urinary Filtration, Intermittent, Less than 6 Hours Per Day (ICD-10-PCS; principal; 2022-05-23)
DX: I13.11 Hypertensive heart and chronic kidney disease without heart failure, with stage 5 chronic kidney disease, or end stage renal disease (principal); N18.6 End stage renal disease; D63.1 Anemia in chronic kidney disease; E83.39 Other disorders of phosphorus metabolism; E11.22 Type 2 diabetes mellitus with diabetic chronic kidney disease; N25.81 Secondary hyperparathyroidism of renal origin; E87.70 Fluid overload, unspecified; N63.0 Unspecified lump in unspecified breast; R42 Dizziness and giddiness; Z20.822 Contact with and (suspected) exposure to COVID-19; F32.A Depression, unspecified; F41.9 Anxiety disorder, unspecified; Z99.2 Dependence on renal dialysis; Z86.73 Personal history of transient ischemic attack (TIA), and cerebral infarction without residual deficits; Z91.15 Patient's noncompliance with renal dialysis; Z91.19 Patient's noncompliance with other medical treatment and regimen; Z88.8 Allergy status to other drugs, medicaments and biological substances; Z79.899 Other long term (current) drug therapy; Z79.82 Long term (current) use of aspirin; Z79.4 Long term (current) use of insulin
CPT/HCPCS: 71045; 80053; 82550; 82962; 83880; 84484; 84702; 85025; 87081; 87340; 90935; 93005; 99291; J1644; J2270; J2405; J7030; 36415-L1; 36415-TC

== ENCOUNTER 2022-06-06 11:40 | Inpatient (IN) | payer MEDICAID ==
[~2022-06-06] VITALS: Ht 157.5 cm; Wt 82.4 kg
[~2022-06-06 11:40] MED LIST changes: -DOCU-350 PO
[2022-06-06 12:18] LABS: BASOPHILS % (AUTO) 0.7 % (0.0-2.0); EOSINOPHILS % (AUTO) 1.9 % (1.0-6.0); HEMATOCRIT 34.1 % (36-46); HEMOGLOBIN 11.5 g/dL (12.0-16.0); LYMPHOCYTES # (AUTO) 1.8 K/uL (1.0-4.8); LYMPHOCYTES % (AUTO) 15.7 % (22.0-44.0); MEAN CORPUSCULAR HEMOGLOBIN 31.1 pg (26.0-34.0); MEAN CORPUSCULAR HGB CONC 33.6 G/dL (31.0-37.0); MEAN CORPUSCULAR VOLUME 93 fL (80-100); MONOCYTES # (AUTO) 0.8 K/uL (0.1-1.0); MONOCYTES % (AUTO) 7.2 % (2.0-9.0); NEUTROPHILS # (AUTO) 8.8 K/uL (1.8-7.7); NEUTROPHILS % (AUTO) 74.5 % (40.0-70.0); PLATELET COUNT (AUTO) 404 K/uL (150-450); RED BLOOD CELL COUNT(AUTO) 3.68 MIL/uL (4.00-5.20); RED CELL DISTRIBUTION WIDTH 14.5 % (11.5-14.5)
[2022-06-06 12:22] LABS: CALCIUM, TOTAL 9.6 mg/dL (8.8-10.5); CREATININE 4.65 mg/dL (0.60-1.30); POTASSIUM 3.6 mmol/L (3.5-5.1)
[2022-06-06 12:29] LABS: ALBUMIN 3.1 g/dL (3.4-5.0); BILIRUBIN,TOTAL 0.4 mg/dL (0.1-1.0); TOTAL PROTEIN, SERUM 7.8 g/dL (6.4-8.2)
[2022-06-06 12:32] LABS: PROTHROMBIN TIME 10.2 SEC (9.4-11.6)
[2022-06-06] MEDS ORDERED: MORPHINE SULFATE 2 MG/ML SYRINGE IVP PRN (15:45)
[2022-06-06] MEDS ORDERED: ONDANSETRON HCL 4 MG/2 ML VIAL IVP PRN (15:45)
[2022-06-06] MEDS ORDERED: BISACODYL 10 MG RECTAL RECTAL SUPPOSITORY PR PRN (15:45)
[2022-06-06] MEDS ORDERED: MAGNESIUM HYDROXIDE SUSPENSION 30 ML UDCUP PO PRN (15:45)
[2022-06-06] MEDS ORDERED: ACETAMINOPHEN 325 MG TABLET PO PRN (15:45)
[2022-06-06] MEDS ORDERED: ZOLPIDEM TARTRATE 5 MG TABLET PO PRN (15:45)
[2022-06-06] MEDS: CloNIDine HCL 0.1 MG TABLET PO SCH ×2 (16:00→20:27)
[2022-06-06] MEDS: HEPARIN SODIUM,PORCINE 5,000 UNITS/ML VIAL SQ SCH ×2 (16:19→23:49)
[2022-06-06 20:10] VITALS: BP 125/74
[2022-06-06] MEDS: HYDROCODONE/ACETAMINOPHEN 5-325 MG TABLET PO PRN (20:27)
[2022-06-06] MEDS: CARVEDILOL 12.5 MG TABLET PO SCH (20:27)
[2022-06-06] MEDS: DOCUSATE SODIUM 100 MG CAPSULE PO SCH (20:27)
[2022-06-06] MEDS: ATORVASTATIN CALCIUM 20 MG TABLET PO SCH (20:27)
[2022-06-06] MEDS ORDERED: ATORVASTATIN CALCIUM 40 MG TABLET PO SCH (21:00)
[2022-06-06 22:11] LABS: COVID AG,FIA SOURCE NASOPHARYNGEAL
[2022-06-06] MEDS ORDERED: GABAPENTIN 300 MG CAPSULE PO ONE (22:30)
[2022-06-06] MEDS ORDERED: KETOROLAC TROMETHAMINE 15 MG/ML VIAL IVP ONE (22:30)
[2022-06-06 23:44] VITALS: BP 123/66
[2022-06-07] VITALS (14 sets, daily range): BP systolic 102–149; BP diastolic 50–97
[2022-06-07] MEDS ORDERED: MethylPREDNISolone SOD SUCC 40 MG/ML VIAL IVP ONE (00:30)
[2022-06-07] MEDS: DiphenhydrAMINE HCL 50 MG/ML VIAL IVP SCH ×5 (00:47→21:08)
[2022-06-07] MEDS: FAMOTIDINE 10 MG/ML 2 ML VIAL IVP SCH ×2 (02:30→08:46)
[2022-06-07 06:33] LABS: CALCIUM, TOTAL 9.1 mg/dL (8.8-10.5); CREATININE 5.82 mg/dL (0.60-1.30); GLUCOSE,RANDOM 195 mg/dL (70-110); THYROID STIMULATING HORMONE 1.04 uIU/mL (0.36-3.74); UREA NITROGEN, BLOOD 44 mg/dL (7-18)
[2022-06-07 06:45] LABS: GLOMERULAR FILTR. RATE CALC 8 mL/min (>60)
[2022-06-07 07:03] LABS: ANION GAP 15 mmol/L (8-16); CARBON DIOXIDE 22 mmol/L (22-29); CHLORIDE 93 mmol/L (98-107); CHOLESTEROL 259 mg/dL (131-200); POTASSIUM 4.5 mmol/L (3.5-5.1); SODIUM SERUM 130 mmol/L (136-145); TRIGLYCERIDES 783 mg/dL (15-150)
[2022-06-07 07:09] LABS: HDL CHOLESTEROL 43 mg/dL (40-60)
[2022-06-07] MEDS: HYDROCODONE/ACETAMINOPHEN 5-325 MG TABLET PO PRN ×2 (08:42→21:31)
[2022-06-07] MEDS: ASPIRIN 81 MG DR TABLET PO SCH (08:42)
[2022-06-07] MEDS: DOCUSATE SODIUM 100 MG CAPSULE PO SCH ×2 (08:42→21:07)
[2022-06-07] MEDS: HEPARIN SODIUM,PORCINE 5,000 UNITS/ML VIAL SQ SCH ×3 (08:43→23:13)
[2022-06-07] MEDS: PANTOPRAZOLE SODIUM 40 MG DR TABLET PO SCH (08:43)
[2022-06-07 08:55] LABS: BASOPHILS % (AUTO) 0.4 % (0.0-2.0); EOSINOPHILS % (AUTO) 0.1 % (1.0-6.0); HEMATOCRIT 37.8 % (36-46); HEMOGLOBIN 12.7 g/dL (12.0-16.0); LYMPHOCYTES # (AUTO) 0.6 K/uL (1.0-4.8); LYMPHOCYTES % (AUTO) 4.2 % (22.0-44.0); MEAN CORPUSCULAR HEMOGLOBIN 31.4 pg (26.0-34.0); MEAN CORPUSCULAR HGB CONC 33.6 G/dL (31.0-37.0); MEAN CORPUSCULAR VOLUME 93 fL (80-100); MONOCYTES # (AUTO) 0.2 K/uL (0.1-1.0); MONOCYTES % (AUTO) 1.2 % (2.0-9.0); NEUTROPHILS # (AUTO) 14.3 K/uL (1.8-7.7); PLATELET COUNT (AUTO) 424 K/uL (150-450); RED BLOOD CELL COUNT(AUTO) 4.04 MIL/uL (4.00-5.20); RED CELL DISTRIBUTION WIDTH 14.7 % (11.5-14.5)
[2022-06-07 09:01] LABS: NEUTROPHILS % (AUTO) 94.1 % (40.0-70.0)
[2022-06-07] MEDS: CARVEDILOL 12.5 MG TABLET PO SCH ×2 (11:42→21:08)
[2022-06-07] MEDS: CloNIDine HCL 0.1 MG TABLET PO SCH ×3 (11:42→21:08)
[2022-06-07] MEDS: AmLODIPine BESYLATE 10 MG TABLET PO SCH (11:43)
[2022-06-07] MEDS: SEVELAMER CARBONATE 800 MG TABLET PO SCH ×2 (12:16→18:00)
[2022-06-07] MEDS: ATORVASTATIN CALCIUM 20 MG TABLET PO SCH (21:08)
[2022-06-07] MEDS ORDERED: DEXTROSE 50%-WATER 25 GM/50 ML SYRINGE IVP PRN (22:00)
[2022-06-07] MEDS ORDERED: TOPIRAMATE 25 MG TABLET PO ONE (22:15)
[2022-06-07] MEDS: INSULIN LISPRO 100 UNITS/ML SQ PRN (23:13)
[2022-06-08 00:07] LABS: GLUCOMETER DEV NAME(LOC) 5S.1B; GLUCOSE,POINT OF CARE 168 MG/DL (70-110)
[2022-06-08 00:08] VITALS: BP 114/78
[2022-06-08 05:37] LABS: BASOPHILS % (AUTO) 0.6 % (0.0-2.0); EOSINOPHILS % (AUTO) 3.9 % (1.0-6.0); HEMATOCRIT 34.2 % (36-46); HEMOGLOBIN 11.8 g/dL (12.0-16.0); LYMPHOCYTES # (AUTO) 2.7 K/uL (1.0-4.8); LYMPHOCYTES % (AUTO) 13.2 % (22.0-44.0); MEAN CORPUSCULAR HEMOGLOBIN 32.1 pg (26.0-34.0); MEAN CORPUSCULAR HGB CONC 34.4 G/dL (31.0-37.0); MEAN CORPUSCULAR VOLUME 93 fL (80-100); MONOCYTES # (AUTO) 1.1 K/uL (0.1-1.0); MONOCYTES % (AUTO) 5.6 % (2.0-9.0); NEUTROPHILS # (AUTO) 15.8 K/uL (1.8-7.7); NEUTROPHILS % (AUTO) 76.7 % (40.0-70.0); PLATELET COUNT (AUTO) 410 K/uL (150-450); RED BLOOD CELL COUNT(AUTO) 3.67 MIL/uL (4.00-5.20); RED CELL DISTRIBUTION WIDTH 14.6 % (11.5-14.5)
[2022-06-08 05:45] LABS: CALCIUM, TOTAL 8.3 mg/dL (8.8-10.5); CREATININE 5.03 mg/dL (0.60-1.30); POTASSIUM 3.4 mmol/L (3.5-5.1)
[2022-06-08 05:53] VITALS: BP 138/86
[2022-06-08] MEDS: INSULIN LISPRO 100 UNITS/ML SQ PRN ×2 (07:01→12:23)
[2022-06-08 07:07] VITALS: BP 158/95
[2022-06-08] MEDS ORDERED: TOPIRAMATE 25 MG TABLET PO SCH (09:00)
[2022-06-08] MEDS ORDERED: SEVE800T17 PO (09:27)
[2022-06-08] MEDS ORDERED: TOPI25 PO (09:27)
[2022-06-08] MEDS: SEVELAMER CARBONATE 800 MG TABLET PO SCH ×2 (10:17→12:24)
[2022-06-08] MEDS: ASPIRIN 81 MG DR TABLET PO SCH (10:17)
[2022-06-08] MEDS: PANTOPRAZOLE SODIUM 40 MG DR TABLET PO SCH (10:18)
[2022-06-08] MEDS: HEPARIN SODIUM,PORCINE 5,000 UNITS/ML VIAL SQ SCH (10:18)
[2022-06-08] MEDS: DOCUSATE SODIUM 100 MG CAPSULE PO SCH (10:18)
[2022-06-08 11:23] VITALS: BP 152/69
[2022-06-08] MEDS: CloNIDine HCL 0.1 MG TABLET PO SCH (11:39)
[2022-06-08] MEDS: CARVEDILOL 12.5 MG TABLET PO SCH (11:40)
[2022-06-08] MEDS: AmLODIPine BESYLATE 10 MG TABLET PO SCH (11:40)
[2022-06-08 12:26] LABS: GLUCOMETER DEV NAME(LOC) 5N.1C; GLUCOSE,POINT OF CARE 150 MG/DL (70-110)
[2022-06-09 00:11] LABS: GLUCOMETER DEV NAME(LOC) 5N.3; GLUCOSE,POINT OF CARE 188 MG/DL (70-110)
== END 2022-06-08 12:35 | disposition home or self-care (01) | DRG 47 ==
LOC: EMS 11:40 → 5S 17:30
PROVIDERS: ADMIT Internal Medicine; ATTEND Internal Medicine
PROC: 5A1D70Z Performance of Urinary Filtration, Intermittent, Less than 6 Hours Per Day (ICD-10-PCS; principal; 2022-06-07)
DX: G45.9 Transient cerebral ischemic attack, unspecified (principal); G93.41 Metabolic encephalopathy; I13.2 Hypertensive heart and chronic kidney disease with heart failure and with stage 5 chronic kidney disease, or end stage renal disease; E87.1 Hypo-osmolality and hyponatremia; N18.6 End stage renal disease; E11.22 Type 2 diabetes mellitus with diabetic chronic kidney disease; R65.10 Systemic inflammatory response syndrome (SIRS) of non-infectious origin without acute organ dysfunction; D63.1 Anemia in chronic kidney disease; G81.91 Hemiplegia, unspecified affecting right dominant side; I50.9 Heart failure, unspecified; G43.109 Migraine with aura, not intractable, without status migrainosus; E66.9 Obesity, unspecified; E78.5 Hyperlipidemia, unspecified; K21.9 Gastro-esophageal reflux disease without esophagitis; D72.829 Elevated white blood cell count, unspecified; Z20.822 Contact with and (suspected) exposure to COVID-19; Z88.8 Allergy status to other drugs, medicaments and biological substances; Z86.73 Personal history of transient ischemic attack (TIA), and cerebral infarction without residual deficits; Z79.899 Other long term (current) drug therapy; Z99.2 Dependence on renal dialysis; Z68.33 Body mass index [BMI] 33.0-33.9, adult; Z79.4 Long term (current) use of insulin
CPT/HCPCS: 70496; 70551; 71045; 80048; 80053; 80061; 82948; 82962; 84443; 84484; 85025; 85610; 85730; 86850; 86900; 86901; 87081; 90935; 92610; 93005; 99285; J1200; J1644; J1885; J2920; J3490; 36415-L1; 36415-TC; 70450; 70450-TC